=== PATIENT | male | born 1975 | race American Indian/Alaskan Native ===

== ENCOUNTER 2019-12-20 11:30 | Inpatient (IN) | payer OTHER ==
[2019-12-20 12:05] VITALS: BMI 20.7
--- NOTE | 2019-12-20 14:16 | HP ---
COWS - Scale Resting Pulse: 0= [place] 80 or Below Sweatin= Chills/Flushing Restless Observation: 0= Sits Still Pupil Size: 1= Pupils >than Normal Bone or Joint Aches: 0= None Runny Nose/ Eye Tearin= Runny Nose/Eyes GI Upset > 30mins: 0= None Tremor Observation: 1= Tremor [place], Not Seen Yawning Observation: 2= >3x During Session Anxiety or Irritability: 2=Irritable/Anxious Goose Flesh Skin: 0=Smooth Skin COWS Score: 9 CIWA Score Nausea/Vomitin-No Nausea/No Vomiting Muscle Tremors: 1-None Visible, but [place] Anxiety: 4-Mod. Anxious/Guarded Agitation: 1-Slight > Activity Paroxysmal Sweats: 3 Orientation: 0-Oriented Tacttile Disturbances: 0-None Auditory Disturbances: 0-None Visual Disturbances: 0-None Headache: 1-Very Mild CIWA-Ar Total Score: 10 - Admission Criteria OASAS Guidelines: Admission for Medically Managed Detox: Requires at least one of the followin. CIWA greater than 12 2. Seizures within the past 24 hours 3. Delirium tremens within the past 24 hours 4. Hallucinations within the past 24 hours 5. Acute intervention needed for co occurring medical disorder 6. Acute intervention needed for co occurring psychiatric disorder 7. Severe withdrawal that cannot be handled at a lower level of care (continued vomiting, continued diarrhea, abnormal vital signs) requiring intravenous medication and/or fluids 8. Admitting History and Physical - Admission History of Present Illness: 44 yo M PMH of polymyositis, asthma, HTN, polysubstance abuse Pt presents in [facility] today for detox. pt states he uses a lot of drugs. very lethargic on exam and falls asleep mid questioning very frequently Heroin: uses 2.5 bundles/ day. first started when he was 10 yo. last night used 2.5 bundles Alcohol: last drink yesterday. 4 pints. 11 yo Cocaine: last use 2 days ago. 0.5 g / day Marijuana smokes 1 ppd Lives in apartment. has family support. Informed by security that HCTZ and oxycodone 30 mg was found in patient's socks. Pt denies having these in his socks and becomes very irritable. will send to [facility] ED for further eval of RUQ, RLQ pain. signed out to Dr. Daniela Diaz - Smoking History Smoking history: Current every day smoker Have you smoked in the past 12 months: Yes Aproximately how many cigarettes per day: 8 - Alcohol/Substance Use Hx Alcohol Use: No Admission ROS [facility] Allergies/Adverse Reactions: Allergies Allergy/AdvReac Type Severity Reaction Status Date / Time Fish Containing Products Allergy Severe Swelling Verified 12/20/19 11:58 fish derived Allergy Severe Swelling Verified 12/20/19 11:58 haloperidol [From Haldol] Allergy Severe Difficulty Verified 12/20/19 11:58 Breathing haloperidol lactate Allergy Severe Difficulty Verified 12/20/19 11:58 [From Haldol] Breathing Iodinated Contrast Media Allergy Severe Difficulty Verified 12/20/19 11:58 Breathing iodine Allergy Severe Difficulty Verified 12/20/19 11:58 Breathing tomato [Tomato] Allergy Severe Swelling Verified 12/20/19 11:58 lactose AdvReac Severe Nausea Verified 12/20/19 11:58 - Ebola screening Have you traveled outside of the country in the last 21 days: No Have you had contact with anyone from an Ebola affected area: No Do you have a fever: No Patient History - Patient Medical History Hx Anemia: Yes Hx Asthma: Yes (ALBUTEROL INHALER) Hx Chronic Obstructive Pulmonary Disease (COPD): No Hx Cancer: No Hx Cardiac Disorders: No Hx Congestive Heart Failure: No Hx Hypertension: Yes Hx Hypercholesterolemia: No Hx Pacemaker: No HX Cerebrovascular Accident: No Hx Seizures: No Hx Dementia: No Hx Diabetes: No Hx Gastrointestinal Disorders: No Hx Liver Disease: No Hx Genitourinary Disorders: No Hx Sexually Transmitted Disorders: No Hx Renal Disease (ESRD): No Hx Thyroid Disease: Yes (grave's disease hyperthyroidism) Hx Human Immunodeficiency Virus (HIV): No (NEGATIVE HX) Hx Hepatitis C: No Hx Depression: Yes (ON MEDS) Hx Suicide Attempt: No (denies) Hx Bipolar Disorder: Yes Hx Schizophrenia: No - Patient Surgical History Past Surgical History: Yes Hx Neurologic Surgery: No Hx Cataract Extraction: No Hx Cardiac Surgery: No Hx Lung Surgery: No Hx Breast Surgery: No Hx Breast Biopsy: No Hx Abdominal Surgery: No Hx Appendectomy: No Hx Cholecystectomy: No Hx Genitourinary Surgery: No Hx Section: No Hx Orthopedic Surgery: Yes (L.forearm and R ankle surgery 1989 s/p w) Anesthesia Reaction: No - PPD History Date: 07/10/16 Results: to be read 01/10 - Smoking Cessation Smoking history: Current every day smoker Have you smoked in the past 12 months: Yes Aproximately how many cigarettes per day: 8 Cigars Per Day: 0 Hx Chewing Tobacco Use: No Initiated information on smoking cessation: Yes 'Breaking Loose' booklet given: 12/20/19 - Substances abused Alcohol Substance route: Oral Frequency: Daily Amount used: vodka- 5pints Age of first use: 11 Date of last use: 12/20/19 Heroin Substance route: Injection Frequency: Daily Amount used: 13bags Age of first use: 11 Date of last use: 12/19/19 Admission Physical Exam BHS - Vital Signs Vital Signs: Vital Signs - 24 hr 12/20/19 11:57 Temperature 97.1 F L Pulse Rate 73 Respiratory 18 Rate Blood Pressure 101/64 - Physical General Appearance: Yes: Thin, Tremorous, Irritable, Sweating, Anxious HEENTM: Yes: EOMI, Hearing grossly Normal, Normocephalic, Normal Voice, LINNETTE Respiratory: Yes: Lungs Clear, Normal Breath Sounds, No Respiratory Distress, No Accessory Muscle Use. No: Wheezing Cardiology: Yes: Within Normal Limits, Regular Rhythm, Regular Rate, S1, S2. No : JVD, Murmur Abdominal: Yes: Normal Bowel Sounds, Soft, Guarding (RUQ and RLQ) Extremities: Yes: Normal Capillary Refill, Normal Inspection. No: Calf Tenderness Neurological: Yes: respiratory therapy manager II-XII NML intact, Fully Oriented Integumentary: Yes: Normal Color, Dry, Warm - Diagnostic (1) Abdominal pain Status: Acute (2) Polymyositis Status: Chronic (3) Heroin abuse Status: Acute (4) Alcohol dependence Status: Active (5) Cocaine dependence Status: Active (6) Essential hypertension Status: Chronic Breathalyzer - Breathalyzer Breathalyzer: 0 Urine Drug Screen - Test Device Lot number: [id number] Expiration date: 06/26/21 - Control Is test valid?: Yes - Results Drug screen NEGATIVE: No Urine drug screen results: SEDA-Cocaine, FEN-Fentanyl, MOP-Opiates Inpatient Rehab Admission - Rehab Decision to Admit Inpatient rehab admission?: No
--- NOTE | 2019-12-20 21:54 | PN ---
[facility] Progress Note Note: CLIENT RETURNS FROM [facility] AFTER BEING TRANSFERRED THERE FOR ABD PAIN. CLIENT WAS SENT BACK W/O ANY WORK UP CLIENT DENIED SUCH COMPLAINTS AND WAS NON COMPLAINT WITH ER STAFF. CLIENT PRESENTS A/O X3 ACUTE DISTRESS 2/2 WITHDRAWAL SX'S. LEFT AC NOTED WITH 20 G HL- NURSING METAL SHAPING MACHINE OPERATOR BERNARDINO INFORMED- HL REMOVED W/O INCIDENT. ABD- SOFT NT, HYPERACTIVE BS X4 ADMIT CLIENT DETOX METHADONE PROTOCOL
[2019-12-20] MEDS ORDERED: BISMUTH SUBSALICYLATE 524 MG/30 ML UD PO PRN (21:57)
[2019-12-20] MEDS ORDERED: MENTHOL/PHENOL 1 EACH UD MM PRN (21:57)
[2019-12-20] MEDS ORDERED: ONDANSETRON *ODT* 4 MG TABLET SL PRN (21:57)
[2019-12-20] MEDS ORDERED: hydrOXYzine PAMOATE 25 MG CAPSULE (FP) PO PRN (21:57)
[2019-12-20] MEDS ORDERED: cloNIDine HCL 0.1 MG TABLET PO PRN (21:57)
[2019-12-20] MEDS ORDERED: NALOXONE HCL 0.4 MG/ML VIAL IM PRN (21:57)
[2019-12-20] MEDS ORDERED: P-EPHED 60MG/TRIPROLIDI 2.5MG TABLET PO PRN (21:57)
[2019-12-20] MEDS ORDERED: METHADONE HCL 10 MG TABLET (FOR DETOX USE ONLY) PO ONE ×2 (21:57→23:24)
[2019-12-20] MEDS ORDERED: ACETAMINOPHEN 325 MG TABLET (FP) PO PRN ×2 (21:57)
[2019-12-20] MEDS ORDERED: guaiFENesin 200 MG/10 ML 10 ML UNIT-DOSE CUPS PO PRN (21:57)
[2019-12-20] MEDS ORDERED: DICYCLOMINE HCL 10 MG CAPSULE PO PRN (21:57)
[2019-12-20] MEDS ORDERED: MAG HYDROX/AL HYDROX/SIMETH 30 ML UNIT-DOSE CUP PO PRN (21:57)
[2019-12-20] MEDS ORDERED: MAGNESIUM HYDROX 2400MG/30ML ORAL SUSPENSION 30 ML CUP PO PRN (21:57)
[2019-12-20] MEDS ORDERED: NICOTINE POLACRILEX 2 MG GUM BUC PRN (21:57)
[2019-12-20] MEDS ORDERED: MAGNESIUM CITRATE 300 ML BOTTLE PO PRN (21:57)
[2019-12-20] MEDS ORDERED: IBUPROFEN 400 MG TABLET (FP) PO PRN (21:57)
[2019-12-20] MEDS ORDERED: MELATONIN 5 MG TABLETS PO PRN (21:57)
[2019-12-20] MEDS: THIAMINE HCL 100 MG TABLET (FP) PO SCH (23:14)
[2019-12-21] MEDS ORDERED: METHADONE HCL 5 MG TABLET (FOR DETOX USE ONLY) ONE (09:44)
[2019-12-21] MEDS ORDERED: METHADONE HCL 10 MG TABLET (FOR DETOX USE ONLY) ONE (09:44)
[2019-12-21] MEDS ORDERED: METHADONE (DETOX) 20 MG, METHADONE (DETOX) 5 MG PO ONE (10:00)
[2019-12-21] MEDS: PRENATAL VITAMINS W/ FOLIC ACID TABLET (FP) PO SCH (11:30)
[2019-12-21] MEDS: NICOTINE 14 MG/24 HOURS TOPICAL PATCH TD SCH (12:17)
--- NOTE | 2019-12-21 15:05 | CONSULT ---
[facility] Psychiatric Consult - Data Date of interview: 12/21/19 Admission source: [facility] Identifying data: It Sales Executive attempted to see patient two times for psychiatric consultation. Patient refused to be seen. Stated to public relations writer, "I'm tired. Maybe tomorrow." Psychiatric consultation refused.
--- NOTE | 2019-12-21 15:21 | PN ---
[facility] CIWA - CIWA Score Nausea/Vomitin-No Nausea/No Vomiting Muscle Tremors: None Anxiety: 4-Mod. Anxious/Guarded Agitation: 1-Slight > Activity Paroxysmal Sweats: No Perspiration Orientation: 0-Oriented Tacttile Disturbances: 2-Mild Itch/Numbness/Burn Auditory Disturbances: 0-None Visual Disturbances: 2-Mild Sensitivity Headache: 0-None Present CIWA-Ar Total Score: 9 [facility] Progress Note (SOAP) Subjective: Fatigue, Poor Appetite, Anxious. Objective: PATIENT A & O X 3, OBSERVED AMBULATING ON DETOX UNIT UNASSISTED. IN NO ACUTE DISTRESS. 12/21/19 15:19 Vital Signs Temperature 98.1 F 12/21/19 10:00 Pulse Rate 92 H 12/21/19 10:00 Respiratory Rate 18 12/21/19 10:00 Blood Pressure 119/73 12/21/19 10:00 O2 Sat by Pulse Oximetry (%) Laboratory Tests 12/21/19 08:00 HIV 1&2 Antibody Screen Negative HIV P24 Antigen Negative RESULTS OF ADMISSION LABS NOTED. ADMISSION RPR RESULT PENDING. 12/21/19 15:20 Assessment: 12/21/19 15:21 WITHDRAWAL SYMPTOMS. Plan: CONTINUE DETOX.
[2019-12-21] MEDS: THIAMINE HCL 100 MG TABLET (FP) PO SCH (22:46)
[2019-12-21] MEDS ORDERED: METHADONE HCL 5 MG TABLET (FOR DETOX USE ONLY) PO ONE (23:45)
--- NOTE | 2019-12-21 23:47 | PN ---
S Progress Note Note: ASKED TO SEE PATIENT FOR UNRELIEVED WITH DRAWAL SX'S. CLIENT DEMANDING ADDITIONAL METHADONE FOR C/O IRRITABILITY SWEATS, CHILLS, RESTLESSNESS AND BODY ACHES. C/O METH IS NOT HOLDING HIM AND WANTS TO SIGN OUT AMA. CLIENT APPEAR IRRITABLE BUT STABLE. NO IMMEDIATE DISTRESS NOTED. VSS. CLIENT THEN BEGAN TO CRY STATING THAT HE IS ON A METHADONE PROGRAM [facility]. LAST THERE 1.5 WEEKS AGO. STATES STOPPED GOING HE IS ON AN ADMINISTRATIVE DETOX FROM 160MG. LAST DOSE W/ 130 MG. D/W CLIENT PROVIDER UNABLE TO VERIFY INFO AT THIS TIME. INFORMATION WILL BE ENDORSED TO DAY PROVIDER IN HOPE THEY CAN VERIFY THE INFORMATION. MOST LIKELY NOT SINCE IT IS A MONDAY BUT WILL ATTEMPT. CLIENT AGREES TO PLAN BUT CONTINUES TO REQUEST THAT HE NEEDS ADDITIONAL METHAONE TO GET HIM THRU THE NIGHT. P- ROBAXIN ORDERED METHADONE 5 MG PO X 1 DOSE CONT TO MONITOR CLOSELY
[2019-12-21] MEDS: METHOCARBAMOL 500 MG TABLET PO PRN (23:55)
[2019-12-22 09:56] VITALS: BP 142/72; PULSE 73; TEMP 100
[2019-12-22] MEDS ORDERED: METHADONE HCL 10 MG TABLET (FOR DETOX USE ONLY) PO ONE (10:00)
[2019-12-22] MEDS: PRENATAL VITAMINS W/ FOLIC ACID TABLET (FP) PO SCH (10:15)
[2019-12-22] MEDS: METHOCARBAMOL 500 MG TABLET PO PRN (10:17)
[2019-12-22] MEDS: NICOTINE 14 MG/24 HOURS TOPICAL PATCH TD SCH (10:17)
--- NOTE | 2019-12-22 13:42 | DS ---
[facility] Detox Discharge Summary Admission Date: 12/20/19 Discharge Date: 12/22/19 - History Present History: Alcohol Dependence, Cocaine Dependence, Opioid Dependence Additional Comments: Patient demanded to leave AMA despite encouragement to complete detox. Patient has been very loud and agitated intermittently and verbally abusive to chart writer both in the hallway and in his room as he was demanding to have more methadone. Patient stated he was in a methadone program outside but last took methadone 130mg 1.5 week ago and that he was using methadone on the street. As per patient , the night doctor told him that he was discharged today. Patient made aware that he was not on the discharge list and he later stated that he will leave whenever he is discharged. After taking his scheduled morning dose of methadone , he later decided to leave AMA. Patient informed to call 911 KRISHAN if sick or withdrawal sxs and to see his PCP within 3 days. Patient left in stable condition. Pertinent Past History: Polymyositis Asthma HTN Hyperthyroidism Nicotine dependence - Physical Exam Results Vital Signs: Vital Signs Temperature 100 F H 12/22/19 09:55 Pulse Rate 73 12/22/19 09:55 Respiratory Rate 18 12/22/19 09:55 Blood Pressure 142/72 12/22/19 09:55 O2 Sat by Pulse Oximetry (%) Pertinent Admission Physical Exam Findings: Withdrawal sxs Laboratory Tests 12/21/19 12/21/19 08:00 08:00 RPR Titer Nonreactive HIV 1&2 Antibody Screen Negative HIV P24 Antigen Negative Labs reviewed - Medication Discharge Medications: Ambulatory Orders NK [No Known Home Medication] 12/20/19 - Diagnosis (1) Alcohol dependence with withdrawal, uncomplicated Status: Acute (2) Cocaine dependence Status: Active (3) Essential hypertension Status: Chronic (4) Nicotine dependence Status: Chronic (5) Opioid dependence with withdrawal Status: Acute (6) Polymyositis Status: Chronic (7) Hyperthyroidism Status: Chronic - AMA Did Patient Leave Against Medical Advice: Yes (Instructed to call 911 KRISHAN if sick or withdrawal sxs)
[2019-12-23] MEDS ORDERED: METHADONE (DETOX) 10 MG, METHADONE (DETOX) 5 MG PO ONE (10:00)
[2019-12-24] MEDS ORDERED: METHADONE HCL 10 MG TABLET (FOR DETOX USE ONLY) PO ONE (10:00)
[2019-12-25] MEDS ORDERED: METHADONE HCL 5 MG TABLET (FOR DETOX USE ONLY) PO ONE (06:00)
== END 2019-12-22 11:40 | disposition left against medical advice (07) | DRG 770 ==
LOC: YASAS 11:30 → Y6N 22:23
PROVIDERS: ADMIT Allergy & Immunology; ATTEND Allergy & Immunology
PROC: HZ2ZZZZ Detoxification Services for Substance Abuse Treatment (ICD-10-PCS; principal; 2019-12-20)
DX: F11.23 Opioid dependence with withdrawal (principal); F10.230 Alcohol dependence with withdrawal, uncomplicated; F14.20 Cocaine dependence, uncomplicated; F17.210 Nicotine dependence, cigarettes, uncomplicated; I10 Essential (primary) hypertension; E05.90 Thyrotoxicosis, unspecified without thyrotoxic crisis or storm; E05.00 Thyrotoxicosis with diffuse goiter without thyrotoxic crisis or storm; M33.20 Polymyositis, organ involvement unspecified; R10.31 Right lower quadrant pain; J45.909 Unspecified asthma, uncomplicated; Z91.19 Patient's noncompliance with other medical treatment and regimen; Z91.011 Allergy to milk products; Z91.013 Allergy to seafood; Z91.041 Radiographic dye allergy status; Z88.8 Allergy status to other drugs, medicaments and biological substances
CPT/HCPCS: 36415; 86593; 87389; J0735; Q0162

== ENCOUNTER 2019-12-20 16:18 | Emergency (ER) | payer OTHER ==
--- NOTE | 2019-12-20 16:38 | PDOC ---
History of Present Illness - General Chief Complaint: Pain, Acute Stated Complaint: ABD PAIN Time Seen by Provider: 12/20/19 16:26 - History of Present Illness Initial Comments: Mr. Al is a 44 y/o male with PMH significant for polymyositis, polysubstance abuse, sent in from [facility] today for abdominal pain and lethargy. Per [facility] note, he has taken multiple drugs including alcohol, cocaine, and opioids. At bedside, patient is denying abdominal pain and refuses to answer questions. States that he would like medications for withdrawal. Past History - Past Medical History Allergies/Adverse Reactions: Allergies Allergy/AdvReac Type Severity Reaction Status Date / Time Fish Containing Products Allergy Severe Swelling Verified 12/20/19 11:58 fish derived Allergy Severe Swelling Verified 12/20/19 11:58 haloperidol [From Haldol] Allergy Severe Difficulty Verified 12/20/19 11:58 Breathing haloperidol lactate Allergy Severe Difficulty Verified 12/20/19 11:58 [From Haldol] Breathing Iodinated Contrast Media Allergy Severe Difficulty Verified 12/20/19 11:58 Breathing iodine Allergy Severe Difficulty Verified 12/20/19 11:58 Breathing tomato [Tomato] Allergy Severe Swelling Verified 12/20/19 11:58 lactose AdvReac Severe Nausea Verified 12/20/19 11:58 Home Medications: Ambulatory Orders NK [No Known Home Medication] 12/20/19 Anemia: Yes Asthma: Yes (ALBUTEROL INHALER) Cancer: No Cardiac Disorders: No CVA: No COPD: No CHF: No Dementia: No Diabetes: No GI Disorders: No Disorders: No HTN: Yes Hypercholesterolemia: No Kidney Stones: No Liver Disease: No Seizures: No Thyroid Disease: Yes (grave's disease hyperthyroidism) - Surgical History Abdominal Surgery: No Appendectomy: No Cardiac Surgery: No Cholecystectomy: No Lung Surgery: No Neurologic Surgery: No Orthopedic Surgery: Yes (L.forearm and R ankle surgery 1989 s/p [facility]) - Reproductive History Testicular Surgery: No - Psycho Social/Smoking Cessation Hx Smoking History: Current every day smoker Have you smoked in the past 12 months: Yes Number of Cigarettes Smoked Daily: 8 Cigars Per Day: 0 'Breaking Loose' booklet given: 07/08/16 Hx Alcohol Use: No Drug/Substance Use Hx: Yes Substance Use Type: Heroin Hx Substance Use Treatment: Yes Abd/GI Specific PMHX - Complaint Specific PMHX Hepatitis: No Pancreatitis: No Review of Systems - Review of Systems Able to Perform ROS?: No (pt refuses to answer ) *Physical Exam - Physical Exam Abd: soft, non-tender, non-distended. Patient refuses to cooperate or participate with the remainder of the physical exam. ED Treatment Course - LABORATORY CBC & Chemistry Diagram: 12/20/19 17:03 12/20/19 17:03 - RADIOLOGY Radiology Studies Ordered: Category Date Time Status CHEST X-RAY PORTABLE* [RAD] Stat Radiology 12/20/19 16:36 Ordered Medical Decision Making - Medical Decision Making 12/20/19 16:37 44M hx of polymyositis, polysubstance abuse, sent in from [facility] for abdominal pain, lethargy. -cbc, cmp -ekg, trop, cxr -lipase, lactic acid -tsh 12/20/19 19:58 Pt reassessed. Continues to refuse to cooperate for EKG, urine test. Pt interviewed with attending and continues to refuse to cooperate. Belligerent and aggressive with several staff members, including day nurse and medical technologist prn. Labs reviewed. Laboratory Last Values WBC 4.8 K/mm3 (4.0-10.0) 12/20/19 17:03 RBC 4.49 M/mm3 (4.00-5.60) 12/20/19 17:03 Hgb 12.5 GM/dL (11.7-16.9) 12/20/19 17:03 Hct 38.1 % (35.4-49) 12/20/19 17:03 MCV 85.0 fl (80-96) 12/20/19 17:03 MCH 27.8 pg (25.7-33.7) 12/20/19 17:03 MCHC 32.7 g/dl (32.0-35.9) 12/20/19 17:03 RDW 14.2 % (11.9-15.9) 12/20/19 17:03 Plt Count 286 K/MM3 (134-434) 12/20/19 17:03 MPV 9.1 fl (7.5-11.1) 12/20/19 17:03 Absolute Neuts (auto) 2.2 K/mm3 (1.5-8.0) 12/20/19 17:03 Neutrophils % 46.9 % (42.8-82.8) 12/20/19 17:03 Lymphocytes % 32.7 % (8-40) 12/20/19 17:03 Monocytes % 14.0 % (3.8-10.2) H 12/20/19 17:03 Eosinophils % 5.3 % (0-4.5) H 12/20/19 17:03 Basophils % 1.1 % (0-2.0) 12/20/19 17:03 Nucleated RBC % 0 % (0-0) 12/20/19 17:03 Sodium 139 mmol/L (136-145) 12/20/19 17:03 Potassium 3.9 mmol/L (3.5-5.1) 12/20/19 17:03 Chloride 108 mmol/L (98-107) H 12/20/19 17:03 Carbon Dioxide 25 mmol/L (21-32) 12/20/19 17:03 Anion Gap 6 MMOL/L (8-16) L 12/20/19 17:03 BUN 14.6 mg/dL (7-18) 12/20/19 17:03 Creatinine 0.9 mg/dL (0.55-1.3) 12/20/19 17:03 Est GFR (CKD-EPI)AfAm 118.30 12/20/19 17:03 Est GFR (CKD-EPI)NonAf 102.07 12/20/19 17:03 Random Glucose 109 mg/dL (74-106) H 12/20/19 17:03 Calcium 9.1 mg/dL (8.5-10.1) 12/20/19 17:03 Total Bilirubin 0.2 mg/dL (0.2-1) 12/20/19 17:03 AST 39 U/L (15-37) H 12/20/19 17:03 ALT 44 U/L (13-61) 12/20/19 17:03 Alkaline Phosphatase 133 U/L (45-117) H 12/20/19 17:03 Creatine Kinase 74 U/L (26-308) 12/20/19 17:03 Troponin I < 0.02 ng/ml (0.00-0.05) 12/20/19 17:03 Total Protein 7.2 g/dl (6.4-8.2) 12/20/19 17:03 Albumin 3.5 g/dl (3.4-5.0) 12/20/19 17:03 Lipase 288 U/L (73-393) 12/20/19 17:03 TSH 0.12 uIU/ml (0.358-3.74) L 12/20/19 17:03 The patient has requested to leave the ED against medical advice. The patient reason(s) for leaving include, but are not limited to, the following: "I did not ask to come to the hospital and I do not want to be here." I believe this patient is of sound mind and competent to refuse medical care. The patient is responding and asking questions appropriately. The patient is oriented to person , place and time. The patient is not psychotic, delusional, suicidal, homicidal or hallucinating. The patient demonstrates a normal mental capacity to make decisions regarding their healthcare. The patient is clinically sober. The patient has been advised of the risks, in layman terms, of leaving AMA which include, but are not limited to , coma, permanent disability, loss of current lifestyle, delay in diagnosis. Alternatives have been offered - the patient remains steadfast in their wish to leave. The patient has been advised that should they change their mind they are welcome to return to this hospital, or any other, at any time. The patient understands that in no way does an AMA discharge mean that I do not want them to have the best medical care available. To this end, I have provided appropriate prescriptions, referrals, and discharge instructions. The patient did not sign AMA paperwork. The above discussion was witnessed by another member of staff. Discharge - Discharge Information Problems reviewed: Yes Clinical Impression/Diagnosis: Abdominal pain Condition: Stable Disposition: AGAINST MEDICAL ADVICE - Admission No - Follow up/Referral - Patient Discharge Instructions Patient Printed Discharge Instructions: DI for Prescription Opioid Use Additional Instructions: Please continue following up at [facility] for detox. - Post Discharge Activity
[2019-12-20 17:25] VITALS: BP 94/60; PULSE 60; TEMP 97.9; BMI 21.2
[2019-12-20 18:04] LABS: BASO % 1.1 % (0-2.0); EOS % 5.3 % (0-4.5); HEMATOCRIT 38.1 % (35.4-49); HEMOGLOBIN 12.5 GM/dL (11.7-16.9); LYMPH % 32.7 % (8-40); MCH 27.8 pg (25.7-33.7); MCHC 32.7 g/dl (32.0-35.9); MEAN PLT VOLUME 9.1 fl (7.5-11.1); NEUT % 46.9 % (42.8-82.8); PLATELET COUNT 286 K/MM3 (134-434); RBC 4.49 M/mm3 (4.00-5.60); RDW 14.2 % (11.9-15.9); WHITE BLOOD COUNT 4.8 K/mm3 (4.0-10.0)
[2019-12-20 18:37] LABS: ALBUMIN 3.5 g/dl (3.4-5.0); BILIRUBIN,TOTAL 0.2 mg/dL (0.2-1); BLOOD UREA NITROGEN 14.6 mg/dL (7-18); CALCIUM 9.1 mg/dL (8.5-10.1); CREATININE 0.9 mg/dL (0.55-1.3); POTASSIUM 3.9 mmol/L (3.5-5.1); TOT PROT 7.2 g/dl (6.4-8.2)
--- NOTE | 2019-12-20 18:45 | PDOC ---
Documentation entered by Vianney Barlow SCRIBE, acting as scribe for Diandra Booth MD. Diandra Booth MD: This documentation has been prepared by the Yen cartagena Brenda, SCRIBE, under my direction and personally reviewed by me in its entirety. I confirm that the documentation accurately reflects all work, treatment, procedures, and medical decision making performed by me. Attending Attestation - Resident Resident Name: James Fajardo - ED Attending Attestation I have performed the following: I have examined & evaluated the patient, The case was reviewed & discussed with the resident, I agree w/resident's findings & plan, Exceptions are as noted - HPI HPI: 12/20/19 17:17 Mr. Al is a 44 year old male with h/o HTN, anemia, polymyositis, asthma and polysubstance abuse (per chart review) He was seen at the [facility] intake physician at noon where pt reportedly complained of abominal pain and was sleepy Since being transferred to the ER the patient has been largely uncooperative Pt was initially sleeping during examination and refusing to answer examiner Allergies: Haloperidol Social History: Polysubstance abuse 12/20/19 19:56 - Physicial Exam PE: 12/20/19 17:22 GENERAL: The patient is sleeping on stretcher ENT: Moist mucous membranes. NECK: Normal range of motion, supple, no nuchal rigidity LUNGS: Breath sounds equal, clear to auscultation bilaterally. HEART: Regular rate and rhythm, normal S1 and S2 without murmur, rub or gallop. ABDOMEN: Soft, no tenderness appreciated by resident Pt refused to allow me to examine him EXTREMITIES: Normal range of motion, no edema. NEUROLOGICAL: Sleeping, arousable to voice, moving all extremities with no difficulty SKIN: Visible portions of skin reveal no lacerations or bruising 12/20/19 19:58 - Medical Decision Making 12/20/19 18:45 44 yo M presenting to the ER due to reported abdominal pain Pt uncooperative with history and physical Laboratory Tests 12/20/19 12/20/19 17:03 17:03 WBC 4.8 Hgb 12.5 Hct 38.1 Plt Count 286 BUN 14.6 Creatinine 0.9 12/20/19 19:59 Attempted to re assess this patient He is refusing repeat abdominal examination and at this time is denying abdominal pain to the ER staff The patient states "I don't know why I was sent here" "I don't have abdominal pain" Pt then turned over in stretcher Uncooperative with EKG Pt will be returned to [facility] for assessment for detox if he chooses to do so Pt labs wnl Clinical impression: requesting Detox Return patient to the ER if he develops new symptoms or complaints
[2019-12-20 18:46] LABS: LIPASE 288 U/L (73-393)
--- NOTE | 2019-12-21 10:49 | EKG ---
Test Reason : Blood Pressure : / mmHG Vent. Rate : 061 BPM Atrial Rate : 061 BPM P-R Int : 156 ms QRS Dur : 086 ms QT Int : 406 ms P-R-T Axes : 074 061 048 degrees QTc Int : 408 ms NORMAL SINUS RHYTHM WITH SINUS ARRHYTHMIA NORMAL ECG NO PREVIOUS ECGS AVAILABLE Confirmed by JOSEMANUEL NEWSOME MD ([id number]) on 12/21/2019 10:49:03 AM Referred By: WAYLON Confirmed By:JOSEMANUEL NEWSOME MD
== END 2019-12-20 21:09 | disposition left against medical advice (07) ==
LOC: JER 16:18
DX: R10.9 Unspecified abdominal pain (principal); M33.20 Polymyositis, organ involvement unspecified; I10 Essential (primary) hypertension; D64.9 Anemia, unspecified; F10.10 Alcohol abuse, uncomplicated; F11.10 Opioid abuse, uncomplicated; F14.10 Cocaine abuse, uncomplicated; Z91.013 Allergy to seafood; Z88.8 Allergy status to other drugs, medicaments and biological substances; Z91.018 Allergy to other foods
CPT/HCPCS: 36415; 71045-TC-FY; 80053; 82550; 83690; 84443; 84484; 85025; 93005; 93010; 99283-25

== ENCOUNTER 2022-04-13 14:46 | Inpatient (IN) | payer OTHER ==
[2022-04-13 15:23] VITALS: BMI 20.9
[2022-04-13] MEDS ORDERED: ACETAMINOPHEN 325 MG TABLET (FP) PO PRN ×2 (17:58)
[2022-04-13] MEDS ORDERED: IBUPROFEN 400 MG TABLET (FP) PO PRN (17:58)
[2022-04-13] MEDS ORDERED: MAGNESIUM HYDROX 2400MG/30ML ORAL SUSPENSION 30 ML CUP PO PRN (17:58)
[2022-04-13] MEDS ORDERED: BENZOCAINE/MENTHOL (CHLORASEPTIC ) LOZENGE MM PRN (17:58)
[2022-04-13] MEDS ORDERED: NICOTINE 10 MG CARTRIDGE (INHALER) IH PRN (17:58)
[2022-04-13] MEDS ORDERED: LOPERAMIDE HCL 2 MG CAPSULE PO PRN (17:58)
[2022-04-13] MEDS ORDERED: DICYCLOMINE HCL 10 MG CAPSULE PO PRN (17:58)
[2022-04-13] MEDS ORDERED: MAGNESIUM CITRATE 300 ML BOTTLE PO PRN (17:58)
[2022-04-13] MEDS ORDERED: MAG HYDROX/AL HYDROX/SIMETH 30 ML UNIT-DOSE CUP PO PRN (17:58)
[2022-04-13] MEDS ORDERED: BISMUTH SUBSALICYLATE 524 MG/30 ML PO PRN (17:58)
[2022-04-13] MEDS ORDERED: ONDANSETRON *ODT* 4 MG TABLET SL PRN (17:58)
[2022-04-14] MEDS: hydrOXYzine PAMOATE 25 MG CAPSULE (FP) PO SCH ×8 (00:02→22:21)
[2022-04-14] MEDS: PRENATAL VITAMINS W/ FOLIC ACID TABLET (FP) PO SCH ×2 (00:02→10:39)
[2022-04-14] MEDS: MELATONIN 5 MG TABLETS PO SCH ×2 (00:02→22:21)
[2022-04-14] MEDS: THIAMINE HCL 100 MG TABLET (FP) PO SCH ×2 (00:03→22:21)
[2022-04-14] MEDS ORDERED: methaDONE HCL 40 MG DISPERSABLE TABLET ONE (09:20)
[2022-04-14] MEDS ORDERED: methaDONE HCL 10 MG TABLET ONE (09:20)
[2022-04-14] MEDS ORDERED: diazePAM 5 MG TABLET PO PRN (09:49)
[2022-04-14] MEDS ORDERED: methaDONE HCL 10 MG TABLET PO ONE (10:00)
[2022-04-14] MEDS: METHOCARBAMOL 500 MG TABLET PO PRN ×2 (10:39→18:02)
[2022-04-14] MEDS: diazePAM 5 MG TABLET PO SCH ×3 (10:41→22:20)
[2022-04-14 10:51] LABS: HEMOGLOBIN 11.6 GM/dL (11.7-16.9); MCHC 32.3 g/dl (32.0-35.9); MEAN CELL VOLUME 83.6 fl (80-96); MEAN PLT VOLUME 9.4 fl (7.5-11.1); PLATELET COUNT 237 10^3/uL (134-434); RDW 14.4 % (11.9-15.9); WHITE BLOOD COUNT 4.9 K/mm3 (4.0-10.0)
[2022-04-14 11:01] LABS: CALCIUM 8.8 mg/dL (8.5-10.1)
[2022-04-14 11:02] LABS: BLOOD UREA NITROGEN 13.3 mg/dL (7-18)
[2022-04-14 11:04] LABS: CREATININE 0.8 mg/dL (0.55-1.3)
[2022-04-14 11:06] LABS: BILIRUBIN,TOTAL 0.3 mg/dL (0.2-1); TOT PROT 6.8 g/dl (6.4-8.2)
[2022-04-15] MEDS ORDERED: methaDONE HCL 10 MG TABLET ONE (04:53)
[2022-04-15] MEDS ORDERED: methaDONE HCL 40 MG DISPERSABLE TABLET ONE (04:54)
[2022-04-15] MEDS ORDERED: methaDONE HCL 10 MG TABLET PO SCH (06:00)
[2022-04-15] MEDS: hydrOXYzine PAMOATE 25 MG CAPSULE (FP) PO SCH ×5 (06:50→22:45)
[2022-04-15] MEDS: diazePAM 5 MG TABLET PO SCH ×3 (06:50→22:45)
[2022-04-15] MEDS: PRENATAL VITAMINS W/ FOLIC ACID TABLET (FP) PO SCH (10:37)
[2022-04-15] MEDS: METHOCARBAMOL 500 MG TABLET PO PRN ×2 (10:38→22:45)
[2022-04-15] MEDS: MELATONIN 5 MG TABLETS PO SCH (22:45)
[2022-04-15] MEDS: THIAMINE HCL 100 MG TABLET (FP) PO SCH (22:45)
[2022-04-16 00:06] LABS: SARS-CoV-2 NAA Not Detected (Not Detected)
[2022-04-16] MEDS ORDERED: methaDONE HCL 40 MG DISPERSABLE TABLET ONE (04:23)
[2022-04-16] MEDS ORDERED: methaDONE HCL 10 MG TABLET ONE (04:23)
[2022-04-16] MEDS: diazePAM 5 MG TABLET PO SCH ×2 (05:57→18:37)
[2022-04-16] MEDS: hydrOXYzine PAMOATE 25 MG CAPSULE (FP) PO SCH ×6 (05:58→23:57)
[2022-04-16] MEDS: PRENATAL VITAMINS W/ FOLIC ACID TABLET (FP) PO SCH ×2 (10:54→10:57)
[2022-04-16] MEDS: METHOCARBAMOL 500 MG TABLET PO PRN (18:37)
[2022-04-16] MEDS: MELATONIN 5 MG TABLETS PO SCH (23:57)
[2022-04-16] MEDS: THIAMINE HCL 100 MG TABLET (FP) PO SCH (23:58)
[2022-04-17] MEDS ORDERED: methaDONE HCL 10 MG TABLET ONE (04:43)
[2022-04-17] MEDS ORDERED: methaDONE HCL 40 MG DISPERSABLE TABLET ONE (04:43)
[2022-04-17] MEDS ORDERED: diazePAM 5 MG TABLET PO ONE (06:00)
[2022-04-17] MEDS: hydrOXYzine PAMOATE 25 MG CAPSULE (FP) PO SCH ×5 (06:27→22:39)
[2022-04-17] MEDS: PRENATAL VITAMINS W/ FOLIC ACID TABLET (FP) PO SCH (11:00)
[2022-04-17] MEDS: METHOCARBAMOL 500 MG TABLET PO PRN (17:37)
[2022-04-17] MEDS: THIAMINE HCL 100 MG TABLET (FP) PO SCH (22:38)
[2022-04-17] MEDS: MELATONIN 5 MG TABLETS PO SCH (22:39)
[2022-04-18] MEDS ORDERED: methaDONE HCL 10 MG TABLET ONE (04:55)
[2022-04-18] MEDS ORDERED: methaDONE HCL 40 MG DISPERSABLE TABLET ONE (04:56)
[2022-04-18] MEDS: hydrOXYzine PAMOATE 25 MG CAPSULE (FP) PO SCH (06:00)
[2022-04-18] MEDS: METHOCARBAMOL 500 MG TABLET PO PRN (09:25)
[2022-04-18] MEDS: PRENATAL VITAMINS W/ FOLIC ACID TABLET (FP) PO SCH (09:25)
[2022-04-18 13:10] VITALS: BP 107/73; PULSE 92; TEMP 98.8
== END 2022-04-18 01:05 | disposition other institution (70) | DRG 773 ==
LOC: YASAS 14:46 → Y6N 18:33
PROVIDERS: ADMIT Allergy & Immunology; ATTEND Surgery
PROC: HZ2ZZZZ Detoxification Services for Substance Abuse Treatment (ICD-10-PCS; principal; 2022-04-13)
DX: F10.230 Alcohol dependence with withdrawal, uncomplicated (principal); F11.20 Opioid dependence, uncomplicated; F14.20 Cocaine dependence, uncomplicated; F12.20 Cannabis dependence, uncomplicated; F17.213 Nicotine dependence, cigarettes, with withdrawal; B18.2 Chronic viral hepatitis C; R63.4 Abnormal weight loss; Z68.20 Body mass index [BMI] 20.0-20.9, adult; Z91.041 Radiographic dye allergy status; Z91.013 Allergy to seafood
CPT/HCPCS: 36415; 80053; 83690; 85027; 86780; 93005; 93010; C9803-CS; U0003; U0005

== ENCOUNTER 2022-04-18 13:21 | Inpatient (IN) | payer OTHER ==
[~2022-04-18 13:21] MED LIST: ACETAMINOPHEN 325 MG TABLET (FP) PO PRN; LOPERAMIDE HCL 2 MG CAPSULE PO PRN; MAG HYDROX/AL HYDROX/SIMETH 30 ML UNIT-DOSE CUP PO PRN; MAGNESIUM CITRATE 300 ML BOTTLE PO PRN; MAGNESIUM HYDROX 2400MG/30ML ORAL SUSPENSION 30 ML CUP PO PRN; P-EPHED 60MG/TRIPROLIDI 2.5MG TABLET PO PRN; guaiFENesin 200 MG/10 ML 10 ML UNIT-DOSE CUPS PO PRN; methaDONE HCL 40 MG DISPERSABLE TABLET PO SCH
[2022-04-18] MEDS: hydrOXYzine PAMOATE 25 MG CAPSULE (FP) PO SCH ×6 (13:49→22:01)
[2022-04-18] MEDS: NICOTINE 7 MG/24 HOURS TOPICAL PATCH TD SCH (13:49)
[2022-04-18] MEDS: PRENATAL VITAMINS W/ FOLIC ACID TABLET (FP) PO SCH (13:49)
[2022-04-18] MEDS: MELATONIN 5 MG TABLETS PO SCH ×2 (14:49→22:00)
[2022-04-18] MEDS: THIAMINE HCL 100 MG TABLET (FP) PO SCH ×2 (14:49→22:01)
[2022-04-18] MEDS: NICOTINE 10 MG CARTRIDGE (INHALER) IH PRN (18:18)
[2022-04-19] MEDS ORDERED: methaDONE HCL 10 MG TABLET ONE (05:43)
[2022-04-19] MEDS ORDERED: methaDONE HCL 40 MG DISPERSABLE TABLET ONE (05:43)
[2022-04-19] MEDS: hydrOXYzine PAMOATE 25 MG CAPSULE (FP) PO SCH (06:19)
[2022-04-19] MEDS: NICOTINE 7 MG/24 HOURS TOPICAL PATCH TD SCH (10:15)
[2022-04-19] MEDS: PRENATAL VITAMINS W/ FOLIC ACID TABLET (FP) PO SCH (10:15)
[2022-04-19] MEDS: METHOCARBAMOL 500 MG TABLET PO PRN (12:31)
[2022-04-19] MEDS: NICOTINE 10 MG CARTRIDGE (INHALER) IH PRN ×2 (12:32→21:59)
[2022-04-19] MEDS: THIAMINE HCL 100 MG TABLET (FP) PO SCH (21:58)
[2022-04-19] MEDS: MELATONIN 5 MG TABLETS PO SCH (21:58)
[2022-04-20] MEDS ORDERED: methaDONE HCL 40 MG DISPERSABLE TABLET ONE (03:44)
[2022-04-20] MEDS ORDERED: methaDONE HCL 10 MG TABLET ONE (03:44)
[2022-04-20 07:01] VITALS: TEMP 98.6
[2022-04-20] MEDS: NICOTINE 7 MG/24 HOURS TOPICAL PATCH TD SCH (09:17)
[2022-04-20] MEDS: METHOCARBAMOL 500 MG TABLET PO PRN (09:17)
[2022-04-20] MEDS: PRENATAL VITAMINS W/ FOLIC ACID TABLET (FP) PO SCH (09:17)
[2022-04-20] MEDS: LIDOCAINE 5% TOPICAL PATCH TP SCH (09:18)
[2022-04-20] MEDS: IBUPROFEN 400 MG TABLET (FP) PO PRN (14:38)
[2022-04-20] MEDS: GABAPENTIN 100 MG CAPSULE PO SCH ×2 (14:38→21:12)
[2022-04-20] MEDS: MELATONIN 5 MG TABLETS PO SCH (21:12)
[2022-04-20] MEDS: LIDOCAINE PATCH REMOVAL MC SCH (21:12)
[2022-04-20] MEDS: THIAMINE HCL 100 MG TABLET (FP) PO SCH (21:12)
[2022-04-21] MEDS ORDERED: methaDONE HCL 40 MG DISPERSABLE TABLET ONE (02:53)
[2022-04-21] MEDS ORDERED: methaDONE HCL 10 MG TABLET ONE (02:53)
[2022-04-21] MEDS: GABAPENTIN 100 MG CAPSULE PO SCH ×3 (06:34→21:44)
[2022-04-21] MEDS: LIDOCAINE 5% TOPICAL PATCH TP SCH (09:52)
[2022-04-21] MEDS: NICOTINE 7 MG/24 HOURS TOPICAL PATCH TD SCH (09:52)
[2022-04-21] MEDS: METHOCARBAMOL 500 MG TABLET PO PRN (09:55)
[2022-04-21] MEDS: hydrOXYzine PAMOATE 25 MG CAPSULE (FP) PO PRN (09:55)
[2022-04-21] MEDS: PRENATAL VITAMINS W/ FOLIC ACID TABLET (FP) PO SCH (09:55)
[2022-04-21] MEDS: LIDOCAINE PATCH REMOVAL MC SCH (21:44)
[2022-04-21] MEDS: MELATONIN 5 MG TABLETS PO SCH (21:44)
[2022-04-21] MEDS: THIAMINE HCL 100 MG TABLET (FP) PO SCH (21:44)
[2022-04-22] MEDS ORDERED: methaDONE HCL 10 MG TABLET ONE (03:58)
[2022-04-22] MEDS ORDERED: methaDONE HCL 40 MG DISPERSABLE TABLET ONE (03:58)
[2022-04-22] MEDS: GABAPENTIN 100 MG CAPSULE PO SCH (06:32)
[2022-04-22] MEDS: hydrOXYzine PAMOATE 25 MG CAPSULE (FP) PO PRN ×2 (06:34→10:23)
[2022-04-22] MEDS: PRENATAL VITAMINS W/ FOLIC ACID TABLET (FP) PO SCH (10:23)
[2022-04-22] MEDS: METHOCARBAMOL 500 MG TABLET PO PRN (10:23)
[2022-04-22] MEDS: LIDOCAINE 5% TOPICAL PATCH TP SCH (10:24)
[2022-04-22] MEDS: IBUPROFEN 400 MG TABLET (FP) PO PRN (10:24)
[2022-04-22] MEDS: NICOTINE 7 MG/24 HOURS TOPICAL PATCH TD SCH (10:24)
[2022-04-22 11:48] VITALS: BP 108/75; PULSE 96
[2022-04-22] MEDS ORDERED: SERTRALINE HCL 50 MG TABLET (FP) PO SCH (12:30)
[2022-04-22] MEDS ORDERED: PERPHENAZINE 4 MG TABLET PO SCH (12:30)
[2022-04-22] MEDS ORDERED: SUVOREXANT 10 MG TABLET PO PRN (22:00)
== END 2022-04-22 13:30 | disposition left against medical advice (07) | DRG 770 ==
LOC: YASAS 13:21 → Y3W 13:26
PROVIDERS: ADMIT Allergy & Immunology; ATTEND Psychiatry & Neurology Pain Medicine
PROC: HZ42ZZZ Group Counseling for Substance Abuse Treatment, Cognitive-Behavioral (ICD-10-PCS; principal; 2022-04-18)
DX: F11.20 Opioid dependence, uncomplicated (principal); F10.20 Alcohol dependence, uncomplicated; F14.20 Cocaine dependence, uncomplicated; F13.10 Sedative, hypnotic or anxiolytic abuse, uncomplicated; F12.20 Cannabis dependence, uncomplicated; F32.A Depression, unspecified; B19.20 Unspecified viral hepatitis C without hepatic coma; Z91.041 Radiographic dye allergy status; Z91.013 Allergy to seafood; Z88.8 Allergy status to other drugs, medicaments and biological substances

== ENCOUNTER 2022-06-10 18:23 | Inpatient (IN) | payer OTHER ==
[2022-06-10] MEDS ORDERED: LOPERAMIDE HCL 2 MG CAPSULE PO PRN (23:36)
[2022-06-10] MEDS ORDERED: IBUPROFEN 600 MG TABLET (FP) PO PRN (23:36)
[2022-06-10] MEDS ORDERED: BENZOCAINE/MENTHOL (CHLORASEPTIC ) LOZENGE MM PRN (23:36)
[2022-06-10] MEDS ORDERED: NICOTINE 10 MG CARTRIDGE (INHALER) IH PRN (23:36)
[2022-06-10] MEDS ORDERED: ACETAMINOPHEN 325 MG TABLET (FP) PO PRN ×2 (23:36)
[2022-06-10] MEDS ORDERED: MAG HYDROX/AL HYDROX/SIMETH 30 ML UNIT-DOSE CUP PO PRN (23:36)
[2022-06-10] MEDS ORDERED: MAGNESIUM CITRATE 300 ML BOTTLE PO PRN (23:36)
[2022-06-10] MEDS ORDERED: MAGNESIUM HYDROX 2400MG/30ML ORAL SUSPENSION 30 ML CUP PO PRN (23:36)
[2022-06-10] MEDS ORDERED: ONDANSETRON *ODT* 4 MG TABLET SL PRN (23:36)
[2022-06-10] MEDS ORDERED: DICYCLOMINE HCL 10 MG CAPSULE PO PRN (23:36)
[2022-06-10] MEDS ORDERED: BISMUTH SUBSALICYLATE 524 MG/30 ML PO PRN (23:36)
[2022-06-10] MEDS ORDERED: IBUPROFEN 400 MG TABLET (FP) PO PRN (23:36)
[2022-06-11] MEDS: diazePAM 5 MG TABLET PO SCH ×5 (02:52→23:19)
[2022-06-11] MEDS ORDERED: FAMOTIDINE 40 MG TABLET PO SCH (10:00)
[2022-06-11] MEDS: hydrOXYzine PAMOATE 25 MG CAPSULE (FP) PO PRN ×2 (10:29→18:26)
[2022-06-11] MEDS: PRENATAL VITAMINS W/ FOLIC ACID TABLET (FP) PO SCH (10:29)
[2022-06-11] MEDS: METHOCARBAMOL 500 MG TABLET PO PRN ×2 (10:30→23:18)
[2022-06-11] MEDS ORDERED: methaDONE HCL 10 MG TABLET PO SCH (11:45)
[2022-06-11] MEDS ORDERED: methaDONE HCL 10 MG TABLET ONE (12:34)
[2022-06-11] MEDS ORDERED: methaDONE HCL 40 MG DISPERSABLE TABLET ONE (12:35)
[2022-06-11 12:36] LABS: HEMOGLOBIN 11.9 GM/dL (11.7-16.9); MCH 27.4 pg (25.7-33.7); MCHC 33.1 g/dl (32.0-35.9); MEAN CELL VOLUME 82.8 fl (80-96); MEAN PLT VOLUME 8.2 fl (7.5-11.1); PLATELET COUNT 256 10^3/uL (134-434); RBC 4.35 M/mm3 (4.00-5.60); RDW 14.6 % (11.9-15.9); WHITE BLOOD COUNT 4.6 K/mm3 (4.0-10.0)
[2022-06-11 14:34] LABS: ALBUMIN 3.4 g/dl (3.4-5.0); BLOOD UREA NITROGEN 9.9 mg/dL (7-18); CALCIUM 8.7 mg/dL (8.5-10.1)
[2022-06-11 14:38] LABS: CREATININE 0.8 mg/dL (0.55-1.3)
[2022-06-11 14:39] LABS: BILIRUBIN,TOTAL 0.2 mg/dL (0.2-1); TOT PROT 7.2 g/dl (6.4-8.2)
[2022-06-11] MEDS ORDERED: MELATONIN 5 MG TABLETS PO SCH (22:00)
[2022-06-11] MEDS ORDERED: SUVOREXANT 10 MG TABLET PO PRN (22:00)
[2022-06-11] MEDS: THIAMINE HCL 100 MG TABLET (FP) PO SCH (23:19)
[2022-06-12] MEDS ORDERED: methaDONE HCL 10 MG TABLET ONE (05:01)
[2022-06-12] MEDS ORDERED: methaDONE HCL 40 MG DISPERSABLE TABLET ONE (05:01)
[2022-06-12] MEDS: diazePAM 5 MG TABLET PO SCH ×3 (06:12→22:29)
[2022-06-12] MEDS ORDERED: PATIENT'S OWN MEDICATION (NON-FORMULARY) (Sertraline Hcl [Zoloft] 100 MG Tablet) PO SCH (10:00)
[2022-06-12] MEDS: METHOCARBAMOL 500 MG TABLET PO PRN (10:40)
[2022-06-12] MEDS: hydrOXYzine PAMOATE 25 MG CAPSULE (FP) PO PRN (10:40)
[2022-06-12] MEDS: SERTRALINE HCL 50 MG TABLET (FP) PO SCH (10:40)
[2022-06-12] MEDS: PRENATAL VITAMINS W/ FOLIC ACID TABLET (FP) PO SCH (10:40)
[2022-06-12] MEDS: FAMOTIDINE 20 MG TABLET PO SCH (10:40)
[2022-06-12] MEDS: diazePAM 5 MG TABLET PO PRN (10:41)
[2022-06-12] MEDS: PERPHENAZINE 4 MG TABLET PO SCH (13:19)
[2022-06-12] MEDS: THIAMINE HCL 100 MG TABLET (FP) PO SCH (22:29)
[2022-06-13] MEDS ORDERED: methaDONE HCL 10 MG TABLET ONE (04:26)
[2022-06-13] MEDS ORDERED: methaDONE HCL 40 MG DISPERSABLE TABLET ONE (04:26)
[2022-06-13] MEDS: hydrOXYzine PAMOATE 25 MG CAPSULE (FP) PO PRN ×3 (05:43→22:46)
[2022-06-13] MEDS: diazePAM 5 MG TABLET PO SCH ×2 (05:44→18:10)
[2022-06-13] MEDS: FAMOTIDINE 20 MG TABLET PO SCH (10:27)
[2022-06-13] MEDS: SERTRALINE HCL 50 MG TABLET (FP) PO SCH (10:27)
[2022-06-13] MEDS: diazePAM 5 MG TABLET PO PRN ×2 (10:28→22:48)
[2022-06-13] MEDS: METHOCARBAMOL 500 MG TABLET PO PRN (10:28)
[2022-06-13] MEDS: PERPHENAZINE 4 MG TABLET PO SCH (10:29)
[2022-06-13] MEDS: PRENATAL VITAMINS W/ FOLIC ACID TABLET (FP) PO SCH (10:29)
[2022-06-13] MEDS: THIAMINE HCL 100 MG TABLET (FP) PO SCH (22:43)
[2022-06-14] MEDS ORDERED: methaDONE HCL 10 MG TABLET ONE (04:46)
[2022-06-14] MEDS ORDERED: methaDONE HCL 40 MG DISPERSABLE TABLET ONE (04:46)
[2022-06-14] MEDS ORDERED: diazePAM 5 MG TABLET PO ONE (06:00)
[2022-06-14] MEDS: hydrOXYzine PAMOATE 25 MG CAPSULE (FP) PO PRN (06:44)
[2022-06-14] MEDS: PRENATAL VITAMINS W/ FOLIC ACID TABLET (FP) PO SCH (10:35)
[2022-06-14] MEDS: FAMOTIDINE 20 MG TABLET PO SCH (10:35)
[2022-06-14] MEDS: SERTRALINE HCL 50 MG TABLET (FP) PO SCH (10:36)
[2022-06-14] MEDS: PERPHENAZINE 4 MG TABLET PO SCH (10:36)
[2022-06-14 12:34] LABS: ALBUMIN 3.1 g/dl (3.4-5.0)
[2022-06-14 12:38] LABS: BILIRUBIN,DIRECT 0.1 mg/dL (0.0-0.2)
[2022-06-14 12:39] LABS: TOT PROT 6.8 g/dl (6.4-8.2)
[2022-06-14 12:40] LABS: BILIRUBIN,TOTAL 0.2 mg/dL (0.2-1)
[2022-06-14 13:09] VITALS: BP 125/74; PULSE 61; TEMP 97.7
== END 2022-06-14 17:30 | disposition other institution (70) | DRG 773 ==
LOC: YASAS 18:23 → Y6N 23:42
PROVIDERS: ADMIT Allergy & Immunology; ATTEND Surgery
PROC: HZ2ZZZZ Detoxification Services for Substance Abuse Treatment (ICD-10-PCS; principal; 2022-06-10)
DX: F10.230 Alcohol dependence with withdrawal, uncomplicated (principal); F11.20 Opioid dependence, uncomplicated; F14.20 Cocaine dependence, uncomplicated; F12.20 Cannabis dependence, uncomplicated; F17.210 Nicotine dependence, cigarettes, uncomplicated; I10 Essential (primary) hypertension; E05.00 Thyrotoxicosis with diffuse goiter without thyrotoxic crisis or storm; B18.2 Chronic viral hepatitis C; N40.0 Benign prostatic hyperplasia without lower urinary tract symptoms; R63.4 Abnormal weight loss; Z88.8 Allergy status to other drugs, medicaments and biological substances; Z91.011 Allergy to milk products; Z91.041 Radiographic dye allergy status; Z91.013 Allergy to seafood
CPT/HCPCS: 36415; 80053; 80076; 85027; 86780; C9803-CS; U0003; U0005

== ENCOUNTER 2022-06-14 18:53 | Inpatient (IN) | payer OTHER ==
[2022-06-14] MEDS ORDERED: MAGNESIUM HYDROX 2400MG/30ML ORAL SUSPENSION 30 ML CUP PO PRN (20:28)
[2022-06-14] MEDS ORDERED: guaiFENesin 200 MG/10 ML 10 ML UNIT-DOSE CUPS PO PRN (20:28)
[2022-06-14] MEDS ORDERED: MAG HYDROX/AL HYDROX/SIMETH 30 ML UNIT-DOSE CUP PO PRN (20:28)
[2022-06-14] MEDS ORDERED: BENZOCAINE/MENTHOL (CHLORASEPTIC ) LOZENGE MM PRN (20:28)
[2022-06-14] MEDS ORDERED: MELATONIN 5 MG TABLETS PO PRN (20:28)
[2022-06-14] MEDS ORDERED: LOPERAMIDE HCL 2 MG CAPSULE PO PRN (20:28)
[2022-06-14] MEDS ORDERED: MAGNESIUM CITRATE 300 ML BOTTLE PO PRN (20:28)
[2022-06-14] MEDS ORDERED: P-EPHED 60MG/TRIPROLIDI 2.5MG TABLET PO PRN (20:28)
[2022-06-14] MEDS ORDERED: NICOTINE POLACRILEX 2 MG GUM BUC PRN (20:28)
[2022-06-14] MEDS: THIAMINE HCL 100 MG TABLET (FP) PO SCH (21:15)
[2022-06-14] MEDS: hydrOXYzine PAMOATE 25 MG CAPSULE (FP) PO PRN (21:15)
[2022-06-15] MEDS ORDERED: methaDONE HCL 10 MG TABLET ONE (04:03)
[2022-06-15] MEDS ORDERED: methaDONE HCL 40 MG DISPERSABLE TABLET ONE (04:03)
[2022-06-15] MEDS ORDERED: methaDONE HCL 40 MG DISPERSABLE TABLET PO SCH (06:00)
[2022-06-15] MEDS: FAMOTIDINE 20 MG TABLET PO SCH (09:47)
[2022-06-15] MEDS: PRENATAL VITAMINS W/ FOLIC ACID TABLET (FP) PO SCH (09:47)
[2022-06-15] MEDS: PROPYLTHIOURACIL 50 MG TABLET (UD) PO SCH (12:05)
[2022-06-15] MEDS: THIAMINE HCL 100 MG TABLET (FP) PO SCH (21:13)
[2022-06-15] MEDS: SUVOREXANT 10 MG TABLET PO PRN (21:13)
[2022-06-15] MEDS: hydrOXYzine PAMOATE 25 MG CAPSULE (FP) PO PRN (21:14)
[2022-06-16] MEDS ORDERED: methaDONE HCL 40 MG DISPERSABLE TABLET ONE (02:39)
[2022-06-16] MEDS ORDERED: methaDONE HCL 10 MG TABLET ONE (02:39)
[2022-06-16] MEDS: FAMOTIDINE 20 MG TABLET PO SCH (09:58)
[2022-06-16] MEDS: PRENATAL VITAMINS W/ FOLIC ACID TABLET (FP) PO SCH (09:58)
[2022-06-16] MEDS: PROPYLTHIOURACIL 50 MG TABLET (UD) PO SCH (09:59)
[2022-06-16] MEDS: SERTRALINE HCL 50 MG TABLET (FP) PO SCH (09:59)
[2022-06-16] MEDS: PERPHENAZINE 4 MG TABLET PO SCH (09:59)
[2022-06-16] MEDS: hydrOXYzine PAMOATE 25 MG CAPSULE (FP) PO PRN (21:13)
[2022-06-16] MEDS: THIAMINE HCL 100 MG TABLET (FP) PO SCH (21:13)
[2022-06-16] MEDS: SUVOREXANT 10 MG TABLET PO PRN (21:14)
[2022-06-17] MEDS ORDERED: methaDONE HCL 40 MG DISPERSABLE TABLET ONE (03:13)
[2022-06-17] MEDS ORDERED: methaDONE HCL 10 MG TABLET ONE (03:13)
[2022-06-17] MEDS: PRENATAL VITAMINS W/ FOLIC ACID TABLET (FP) PO SCH (09:55)
[2022-06-17] MEDS: FAMOTIDINE 20 MG TABLET PO SCH (09:56)
[2022-06-17] MEDS: PERPHENAZINE 4 MG TABLET PO SCH (09:56)
[2022-06-17] MEDS: PROPYLTHIOURACIL 50 MG TABLET (UD) PO SCH (09:56)
[2022-06-17] MEDS: SERTRALINE HCL 50 MG TABLET (FP) PO SCH (09:56)
[2022-06-17] MEDS: NICOTINE 10 MG CARTRIDGE (INHALER) IH PRN ×2 (09:58→21:23)
[2022-06-17] MEDS: SUVOREXANT 10 MG TABLET PO PRN (21:23)
[2022-06-17] MEDS: THIAMINE HCL 100 MG TABLET (FP) PO SCH (21:23)
[2022-06-17] MEDS: hydrOXYzine PAMOATE 25 MG CAPSULE (FP) PO PRN (21:23)
[2022-06-18] MEDS ORDERED: methaDONE HCL 10 MG TABLET ONE (03:43)
[2022-06-18] MEDS ORDERED: methaDONE HCL 40 MG DISPERSABLE TABLET ONE (03:43)
[2022-06-18] MEDS: PRENATAL VITAMINS W/ FOLIC ACID TABLET (FP) PO SCH (10:05)
[2022-06-18] MEDS: SERTRALINE HCL 50 MG TABLET (FP) PO SCH (10:05)
[2022-06-18] MEDS: PROPYLTHIOURACIL 50 MG TABLET (UD) PO SCH (10:05)
[2022-06-18] MEDS: FAMOTIDINE 20 MG TABLET PO SCH (10:05)
[2022-06-18] MEDS: PERPHENAZINE 4 MG TABLET PO SCH (10:06)
[2022-06-18] MEDS: hydrOXYzine PAMOATE 25 MG CAPSULE (FP) PO PRN (21:12)
[2022-06-18] MEDS: THIAMINE HCL 100 MG TABLET (FP) PO SCH (21:12)
[2022-06-18] MEDS: SUVOREXANT 10 MG TABLET PO PRN (21:14)
[2022-06-19] MEDS ORDERED: methaDONE HCL 10 MG TABLET ONE (02:48)
[2022-06-19] MEDS ORDERED: methaDONE HCL 40 MG DISPERSABLE TABLET ONE (02:48)
[2022-06-19] MEDS: PERPHENAZINE 4 MG TABLET PO SCH (10:00)
[2022-06-19] MEDS: PROPYLTHIOURACIL 50 MG TABLET (UD) PO SCH (10:00)
[2022-06-19] MEDS: SERTRALINE HCL 50 MG TABLET (FP) PO SCH (10:00)
[2022-06-19] MEDS: PRENATAL VITAMINS W/ FOLIC ACID TABLET (FP) PO SCH (10:00)
[2022-06-19] MEDS: FAMOTIDINE 20 MG TABLET PO SCH (10:00)
[2022-06-19] MEDS: THIAMINE HCL 100 MG TABLET (FP) PO SCH (21:28)
[2022-06-19] MEDS: hydrOXYzine PAMOATE 25 MG CAPSULE (FP) PO PRN (21:28)
[2022-06-19] MEDS: SUVOREXANT 10 MG TABLET PO PRN (21:30)
[2022-06-20] MEDS ORDERED: methaDONE HCL 40 MG DISPERSABLE TABLET ONE (04:56)
[2022-06-20] MEDS ORDERED: methaDONE HCL 10 MG TABLET ONE (04:56)
[2022-06-20] MEDS: PROPYLTHIOURACIL 50 MG TABLET (UD) PO SCH (09:22)
[2022-06-20] MEDS: SERTRALINE HCL 50 MG TABLET (FP) PO SCH (09:22)
[2022-06-20] MEDS: PRENATAL VITAMINS W/ FOLIC ACID TABLET (FP) PO SCH (09:22)
[2022-06-20] MEDS: hydrOXYzine PAMOATE 25 MG CAPSULE (FP) PO PRN (09:22)
[2022-06-20] MEDS: PERPHENAZINE 4 MG TABLET PO SCH (09:22)
[2022-06-20] MEDS: FAMOTIDINE 20 MG TABLET PO SCH (09:22)
[2022-06-20] MEDS: IBUPROFEN 400 MG TABLET (FP) PO PRN (09:23)
[2022-06-20] MEDS: METHOCARBAMOL 500 MG TABLET PO PRN ×2 (15:25→21:50)
[2022-06-20] MEDS: NICOTINE 10 MG CARTRIDGE (INHALER) IH PRN (15:26)
[2022-06-20] MEDS: LIDOCAINE 5% TOPICAL PATCH TP SCH (15:27)
[2022-06-20] MEDS: THIAMINE HCL 100 MG TABLET (FP) PO SCH (21:50)
[2022-06-20] MEDS: LIDOCAINE PATCH REMOVAL MC SCH (21:50)
[2022-06-20] MEDS ORDERED: SUVOREXANT 10 MG TABLET PO PRN (22:00)
[2022-06-21] MEDS ORDERED: methaDONE HCL 10 MG TABLET ONE (06:48)
[2022-06-21] MEDS ORDERED: methaDONE HCL 40 MG DISPERSABLE TABLET ONE (06:48)
[2022-06-21] MEDS: METHOCARBAMOL 500 MG TABLET PO PRN ×2 (07:07→21:26)
[2022-06-21] MEDS: SERTRALINE HCL 50 MG TABLET (FP) PO SCH (09:59)
[2022-06-21] MEDS: PRENATAL VITAMINS W/ FOLIC ACID TABLET (FP) PO SCH (09:59)
[2022-06-21] MEDS: FAMOTIDINE 20 MG TABLET PO SCH (09:59)
[2022-06-21] MEDS: PROPYLTHIOURACIL 50 MG TABLET (UD) PO SCH (10:00)
[2022-06-21] MEDS: PERPHENAZINE 4 MG TABLET PO SCH (10:00)
[2022-06-21] MEDS: LIDOCAINE 5% TOPICAL PATCH TP SCH (10:01)
[2022-06-21] MEDS: LIDOCAINE PATCH REMOVAL MC SCH (21:20)
[2022-06-21] MEDS: SUVOREXANT 10 MG TABLET PO PRN (21:22)
[2022-06-21] MEDS: THIAMINE HCL 100 MG TABLET (FP) PO SCH (21:23)
[2022-06-21] MEDS: ACETAMINOPHEN 325 MG TABLET (FP) PO PRN (21:23)
[2022-06-22] MEDS ORDERED: methaDONE HCL 10 MG TABLET ONE (04:11)
[2022-06-22] MEDS ORDERED: methaDONE HCL 40 MG DISPERSABLE TABLET ONE (04:11)
[2022-06-22] MEDS: LIDOCAINE 5% TOPICAL PATCH TP SCH (09:50)
[2022-06-22] MEDS: PRENATAL VITAMINS W/ FOLIC ACID TABLET (FP) PO SCH (09:50)
[2022-06-22] MEDS: SERTRALINE HCL 50 MG TABLET (FP) PO SCH (09:51)
[2022-06-22] MEDS: FAMOTIDINE 20 MG TABLET PO SCH (09:51)
[2022-06-22] MEDS: PERPHENAZINE 4 MG TABLET PO SCH (09:51)
[2022-06-22] MEDS: PROPYLTHIOURACIL 50 MG TABLET (UD) PO SCH (09:51)
[2022-06-22] MEDS: METHOCARBAMOL 500 MG TABLET PO PRN ×2 (09:53→21:33)
[2022-06-22] MEDS: ACETAMINOPHEN 325 MG TABLET (FP) PO PRN (09:53)
[2022-06-22] MEDS: NICOTINE 10 MG CARTRIDGE (INHALER) IH PRN (21:28)
[2022-06-22] MEDS: THIAMINE HCL 100 MG TABLET (FP) PO SCH (21:29)
[2022-06-22] MEDS: LIDOCAINE PATCH REMOVAL MC SCH (21:29)
[2022-06-22] MEDS: SUVOREXANT 10 MG TABLET PO PRN (21:29)
[2022-06-22] MEDS: IBUPROFEN 400 MG TABLET (FP) PO PRN (21:33)
[2022-06-23] MEDS ORDERED: methaDONE HCL 40 MG DISPERSABLE TABLET ONE (05:43)
[2022-06-23] MEDS ORDERED: methaDONE HCL 10 MG TABLET ONE (05:43)
[2022-06-23] MEDS: PRENATAL VITAMINS W/ FOLIC ACID TABLET (FP) PO SCH (09:46)
[2022-06-23] MEDS: LIDOCAINE 5% TOPICAL PATCH TP SCH (09:46)
[2022-06-23] MEDS: SERTRALINE HCL 50 MG TABLET (FP) PO SCH (09:47)
[2022-06-23] MEDS: FAMOTIDINE 20 MG TABLET PO SCH (09:47)
[2022-06-23] MEDS: PERPHENAZINE 4 MG TABLET PO SCH (09:47)
[2022-06-23] MEDS: PROPYLTHIOURACIL 50 MG TABLET (UD) PO SCH (09:47)
[2022-06-23] MEDS: METHOCARBAMOL 500 MG TABLET PO PRN ×2 (09:48→21:11)
[2022-06-23] MEDS: ACETAMINOPHEN 325 MG TABLET (FP) PO PRN (09:48)
[2022-06-23] MEDS: NICOTINE 10 MG CARTRIDGE (INHALER) IH PRN (14:03)
[2022-06-23] MEDS: THIAMINE HCL 100 MG TABLET (FP) PO SCH (21:11)
[2022-06-23] MEDS: LIDOCAINE PATCH REMOVAL MC SCH (21:12)
[2022-06-23] MEDS: hydrOXYzine PAMOATE 25 MG CAPSULE (FP) PO PRN (21:13)
[2022-06-24] MEDS ORDERED: methaDONE HCL 10 MG TABLET ONE (07:02)
[2022-06-24] MEDS ORDERED: methaDONE HCL 40 MG DISPERSABLE TABLET ONE (07:02)
[2022-06-24] MEDS: PRENATAL VITAMINS W/ FOLIC ACID TABLET (FP) PO SCH (11:02)
[2022-06-24] MEDS: SERTRALINE HCL 50 MG TABLET (FP) PO SCH (11:03)
[2022-06-24] MEDS: PROPYLTHIOURACIL 50 MG TABLET (UD) PO SCH (11:03)
[2022-06-24] MEDS: PERPHENAZINE 4 MG TABLET PO SCH (11:03)
[2022-06-24] MEDS: FAMOTIDINE 20 MG TABLET PO SCH (11:03)
[2022-06-24] MEDS: LIDOCAINE 5% TOPICAL PATCH TP SCH (11:04)
[2022-06-24] MEDS ORDERED: SUVOREXANT 10 MG TABLET PO PRN (22:00)
[2022-06-24] MEDS: THIAMINE HCL 100 MG TABLET (FP) PO SCH (22:34)
[2022-06-24] MEDS: LIDOCAINE PATCH REMOVAL MC SCH (22:34)
[2022-06-25] MEDS ORDERED: methaDONE HCL 10 MG TABLET ONE (05:28)
[2022-06-25] MEDS ORDERED: methaDONE HCL 40 MG DISPERSABLE TABLET ONE (05:29)
[2022-06-25 06:52] VITALS: RESP 18
[2022-06-25] MEDS: LIDOCAINE 5% TOPICAL PATCH TP SCH (10:43)
[2022-06-25] MEDS: PROPYLTHIOURACIL 50 MG TABLET (UD) PO SCH (10:44)
[2022-06-25] MEDS: PERPHENAZINE 4 MG TABLET PO SCH (10:44)
[2022-06-25] MEDS: FAMOTIDINE 20 MG TABLET PO SCH (10:44)
[2022-06-25] MEDS: SERTRALINE HCL 50 MG TABLET (FP) PO SCH (10:44)
[2022-06-25] MEDS: PRENATAL VITAMINS W/ FOLIC ACID TABLET (FP) PO SCH (10:44)
[2022-06-25] MEDS: LIDOCAINE PATCH REMOVAL MC SCH (21:18)
[2022-06-25] MEDS: THIAMINE HCL 100 MG TABLET (FP) PO SCH (21:20)
[2022-06-25] MEDS: METHOCARBAMOL 500 MG TABLET PO PRN (21:22)
[2022-06-25] MEDS ORDERED: MELATONIN 5 MG TABLETS PO SCH (22:00)
[2022-06-26] MEDS ORDERED: methaDONE HCL 10 MG TABLET ONE (02:50)
[2022-06-26] MEDS ORDERED: methaDONE HCL 40 MG DISPERSABLE TABLET ONE (02:51)
[2022-06-26 06:56] VITALS: BP 102/72; PULSE 77; TEMP 97.5
[2022-06-26] MEDS ORDERED: hydrOXYzine PAMOATE 25 MG CAPSULE (FP) PO PRN ×2 (09:15)
[2022-06-26] MEDS: LIDOCAINE 5% TOPICAL PATCH TP SCH (10:15)
[2022-06-26] MEDS: FAMOTIDINE 20 MG TABLET PO SCH (10:15)
[2022-06-26] MEDS: PRENATAL VITAMINS W/ FOLIC ACID TABLET (FP) PO SCH (10:15)
[2022-06-26] MEDS: SERTRALINE HCL 50 MG TABLET (FP) PO SCH (10:16)
[2022-06-26] MEDS: PERPHENAZINE 4 MG TABLET PO SCH (10:16)
[2022-06-26] MEDS: PROPYLTHIOURACIL 50 MG TABLET (UD) PO SCH (10:16)
[2022-06-26] MEDS ORDERED: SUVOREXANT 15 MG TABLET PO PRN (22:00)
[2022-06-26] MEDS: LIDOCAINE PATCH REMOVAL MC SCH (22:25)
[2022-06-26] MEDS: THIAMINE HCL 100 MG TABLET (FP) PO SCH (22:25)
== END 2022-06-26 19:01 | disposition left against medical advice (07) | DRG 770 ==
LOC: Y5N 18:53
PROVIDERS: ADMIT Allergy & Immunology; ATTEND Psychiatry & Neurology Pain Medicine
PROC: HZ42ZZZ Group Counseling for Substance Abuse Treatment, Cognitive-Behavioral (ICD-10-PCS; principal; 2022-06-14)
DX: F10.20 Alcohol dependence, uncomplicated (principal); F11.20 Opioid dependence, uncomplicated; F14.20 Cocaine dependence, uncomplicated; F12.20 Cannabis dependence, uncomplicated; F17.210 Nicotine dependence, cigarettes, uncomplicated; F31.9 Bipolar disorder, unspecified; F19.24 Other psychoactive substance dependence with psychoactive substance-induced mood disorder; I10 Essential (primary) hypertension; B18.2 Chronic viral hepatitis C; N40.0 Benign prostatic hyperplasia without lower urinary tract symptoms; E05.00 Thyrotoxicosis with diffuse goiter without thyrotoxic crisis or storm; K74.60 Unspecified cirrhosis of liver
CPT/HCPCS: 36415; 84443

== ENCOUNTER 2024-10-05 15:04 | Inpatient (IN) | payer OTHER ==
[2024-10-05 15:53] VITALS: BMI 21.5
[2024-10-05] MEDS ORDERED: NICOTINE POLACRILEX 2 MG GUM BUC PRN (16:20)
[2024-10-05] MEDS ORDERED: POLYETHYLENE GLYCOL (HEALTHYLAX) 3350 17 GM PACKET PO PRN (16:20)
[2024-10-05] MEDS ORDERED: BISMUTH SUBSALICYLATE 524 MG/30 ML PO PRN (16:20)
[2024-10-05] MEDS ORDERED: BENZONATATE 200 MG CAPSULE PO PRN (16:20)
[2024-10-05] MEDS ORDERED: IBUPROFEN 400 MG TABLET (FP) PO PRN (16:20)
[2024-10-05] MEDS ORDERED: ONDANSETRON *ODT* 4 MG TABLET SL PRN (16:20)
[2024-10-05] MEDS ORDERED: DICYCLOMINE HCL 10 MG CAPSULE PO PRN (16:20)
[2024-10-05] MEDS ORDERED: ACETAMINOPHEN 325 MG TABLET (FP) PO PRN (16:20)
[2024-10-05] MEDS ORDERED: MAG HYDROX/AL HYDROX/SIMETH 30 ML UNIT-DOSE CUP PO PRN (16:20)
[2024-10-05] MEDS ORDERED: METHOCARBAMOL 500 MG TABLET PO PRN (16:20)
[2024-10-05] MEDS ORDERED: BENZOCAINE/MENTHOL (CHLORASEPTIC ) LOZENGE MM PRN (16:20)
[2024-10-05] MEDS ORDERED: NICOTINE POLACRILEX 2 MG LOZENGE BC PRN (16:20)
[2024-10-05] MEDS ORDERED: MAGNESIUM HYDROX 2400MG/30ML ORAL SUSPENSION 30 ML CUP PO PRN (16:20)
[2024-10-05] MEDS ORDERED: guaiFENesin 600 MG TABLET.ER (FP) PO PRN (16:20)
[2024-10-05] MEDS ORDERED: NALOXONE (NARCAN) HCL 4 MG/0.1 ML SPRAY NS PRN (16:20)
[2024-10-05] MEDS: THIAMINE 100 MG TABLET PO SCH (21:59)
[2024-10-05] MEDS: MELATONIN 5 MG TABLETS PO SCH (21:59)
[2024-10-06 08:00] LABS: POTASSIUM 3.9 mmol/L (3.5-5.1)
[2024-10-06 08:05] LABS: CALCIUM 8.3 mg/dL (8.5-10.1)
[2024-10-06 08:06] LABS: ALBUMIN 2.8 g/dl (3.4-5.0); BLOOD UREA NITROGEN 12.1 mg/dL (7-18); HEMATOCRIT 33.9 % (35.4-49); MCH 27.3 pg (25.7-33.7); MCHC 32.3 g/dl (32.0-35.9); MEAN CELL VOLUME 84.4 fl (80-96); MEAN PLT VOLUME 8.8 fl (7.5-11.1); PLATELET COUNT 221 10^3/uL (134-434); RBC 4.02 M/mm3 (4.00-5.60); RDW 14.1 % (11.9-15.9); WHITE BLOOD COUNT 5.8 K/mm3 (4.0-10.0)
[2024-10-06 08:10] LABS: BILIRUBIN,TOTAL 0.2 mg/dL (0.2-1); TOT PROT 5.9 g/dl (6.4-8.2)
[2024-10-06] MEDS ORDERED: chlordiazePOXIDE HCL 25 MG CAPSULE PO PRN (09:53)
[2024-10-06] MEDS ORDERED: methaDONE HCL 10 MG TABLET PO SCH (10:15)
[2024-10-06] MEDS: PRENATAL VITAMINS W/ FOLIC ACID TABLET (FP) PO SCH (11:08)
[2024-10-06] MEDS: chlordiazePOXIDE HCL 25 MG CAPSULE PO SCH (11:09)
[2024-10-06] MEDS ORDERED: hydrOXYzine PAMOATE 25 MG CAPSULE (FP) PO PRN (16:57)
[2024-10-06] MEDS: PERPHENAZINE 4 MG TABLET PO SCH (22:40)
[2024-10-07] MEDS ORDERED: methaDONE HCL 10 MG TABLET PO ONE (09:48)
[2024-10-07] MEDS ORDERED: ESCITALOPRAM OXALATE 10 MG TABLET ONE (10:59)
[2024-10-07] MEDS: ESCITALOPRAM OXALATE 20 MG TABLET PO SCH (11:00)
[2024-10-08] MEDS: methaDONE HCL 40 MG DISPERSABLE TABLET PO ONE (05:29)
[2024-10-08] MEDS: chlordiazePOXIDE HCL 25 MG CAPSULE PO SCH (05:29)
[2024-10-08] MEDS ORDERED: ESCITALOPRAM OXALATE 10 MG TABLET ONE (10:04)
[2024-10-08] MEDS: IBUPROFEN 600 MG TABLET (FP) PO PRN (16:58)
[2024-10-09] MEDS ORDERED: chlordiazePOXIDE HCL 10 MG CAPSULE PO PRN
[2024-10-09] MEDS: chlordiazePOXIDE HCL 10 MG CAPSULE PO SCH (05:30)
[2024-10-09] MEDS ORDERED: methaDONE HCL 10 MG TABLET PO ONE (06:00)
[2024-10-09] MEDS ORDERED: ESCITALOPRAM OXALATE 10 MG TABLET ONE (10:09)
[2024-10-09] MEDS: PROPYLTHIOURACIL 50 MG TABLET (UD) PO SCH (11:13)
[2024-10-09] MEDS: NALOXONE (NYS OPIOID OVERDOSE PROGRAM) 4 MG/0.1 ML SPRAY NS SCH (12:39)
[2024-10-10] MEDS: chlordiazePOXIDE HCL 10 MG CAPSULE PO SCH (05:25)
[2024-10-10] MEDS ORDERED: methaDONE HCL 10 MG TABLET PO ONE (06:00)
[2024-10-10] MEDS ORDERED: ESCITALOPRAM OXALATE 10 MG TABLET ONE (10:02)
[2024-10-10] MEDS: FAMOTIDINE 20 MG TABLET PO SCH (12:04)
[2024-10-10] MEDS: NALOXONE (NYS OPIOID OVERDOSE PROGRAM) 4 MG/0.1 ML SPRAY NS SCH (12:45)
[2024-10-11] MEDS: LOPERAMIDE HCL 2 MG CAPSULE PO PRN (04:40)
[2024-10-11] MEDS: chlordiazePOXIDE HCL 10 MG CAPSULE PO ONE (05:51)
[2024-10-11] MEDS ORDERED: methaDONE HCL 40 MG DISPERSABLE TABLET PO SCH (06:00)
[2024-10-11 06:49] VITALS: TEMP 98.4
[2024-10-11 08:48] VITALS: BP 106/69; PULSE 55; RESP 16
[2024-10-11] MEDS: NALOXONE (NYS OPIOID OVERDOSE PROGRAM) 4 MG/0.1 ML SPRAY NS PRN (10:19)
== END 2024-10-11 11:30 | disposition home or self-care (01) | DRG 773 ==
LOC: YASAS 15:04 → Y6N 16:45
PROVIDERS: ADMIT Allergy & Immunology; ATTEND Surgery
PROC: HZ2ZZZZ Detoxification Services for Substance Abuse Treatment (ICD-10-PCS; principal; 2024-10-05)
DX: F10.230 Alcohol dependence with withdrawal, uncomplicated (principal); F11.20 Opioid dependence, uncomplicated; F14.20 Cocaine dependence, uncomplicated; F12.20 Cannabis dependence, uncomplicated; F17.210 Nicotine dependence, cigarettes, uncomplicated; F33.1 Major depressive disorder, recurrent, moderate; F41.9 Anxiety disorder, unspecified; E05.90 Thyrotoxicosis, unspecified without thyrotoxic crisis or storm; Z86.73 Personal history of transient ischemic attack (TIA), and cerebral infarction without residual deficits; Z56.0 Unemployment, unspecified; Z59.00 Homelessness unspecified
CPT/HCPCS: 36415; 80053; 80305; 80307; 85027; 86780; 93005; 93010

== ENCOUNTER 2024-12-02 16:59 | Inpatient (IN) | payer OTHER ==
[2024-12-02 18:10] VITALS: BMI 21.7
[2024-12-02] MEDS ORDERED: IBUPROFEN 400 MG TABLET (FP) PO PRN (18:21)
[2024-12-02] MEDS ORDERED: ONDANSETRON *ODT* 4 MG TABLET SL PRN (18:21)
[2024-12-02] MEDS ORDERED: MAG HYDROX/AL HYDROX/SIMETH 30 ML UNIT-DOSE CUP PO PRN (18:21)
[2024-12-02] MEDS ORDERED: NICOTINE POLACRILEX 2 MG GUM BUC PRN (18:21)
[2024-12-02] MEDS ORDERED: LOPERAMIDE HCL 2 MG CAPSULE PO PRN (18:21)
[2024-12-02] MEDS ORDERED: BENZOCAINE/MENTHOL (CHLORASEPTIC ) LOZENGE MM PRN (18:21)
[2024-12-02] MEDS ORDERED: NICOTINE POLACRILEX 2 MG LOZENGE BC PRN (18:21)
[2024-12-02] MEDS ORDERED: P-EPHED 60MG/TRIPROLIDI 2.5MG TABLET PO PRN (18:21)
[2024-12-02] MEDS ORDERED: IBUPROFEN 600 MG TABLET (FP) PO PRN (18:21)
[2024-12-02] MEDS ORDERED: BISMUTH SUBSALICYLATE 524 MG/30 ML PO PRN (18:21)
[2024-12-02] MEDS ORDERED: DICYCLOMINE HCL 10 MG CAPSULE PO PRN (18:21)
[2024-12-02] MEDS ORDERED: MAGNESIUM HYDROX 2400MG/30ML ORAL SUSPENSION 30 ML CUP PO PRN (18:21)
[2024-12-02] MEDS ORDERED: POLYETHYLENE GLYCOL (HEALTHYLAX) 3350 17 GM PACKET PO PRN (18:21)
[2024-12-02] MEDS ORDERED: guaiFENesin 600 MG TABLET.ER (FP) PO PRN (18:21)
[2024-12-02] MEDS ORDERED: BENZONATATE 200 MG CAPSULE PO PRN (18:21)
[2024-12-02] MEDS ORDERED: ALBUTEROL SO4 2.5/IPRATROPIUM 0.5 INH SOL 3 ML VIAL.NEB. NEB ONE (21:19)
[2024-12-02] MEDS: ALBUTEROL SO4 2.5/IPRATROPIUM 0.5 INH SOL 3 ML VIAL.NEB. NEB SCH (21:22)
[2024-12-03] MEDS ORDERED: MELATONIN 5 MG TABLETS ONE (00:27)
[2024-12-03] MEDS: MELATONIN 5 MG TABLETS PO SCH (00:31)
[2024-12-03] MEDS: THIAMINE 100 MG TABLET PO SCH (00:31)
[2024-12-03] MEDS ORDERED: methaDONE HCL 10 MG TABLET (FOR DETOX USE ONLY) PO ONE (08:02)
[2024-12-03] MEDS: clonazePAM 0.5 MG ODT TABLETS SL SCH (09:47)
[2024-12-03] MEDS: methaDONE 80 MG, methaDONE 20 MG PO ONE (09:47)
[2024-12-03] MEDS: PRENATAL VITAMINS W/ FOLIC ACID TABLET (FP) PO SCH (09:48)
[2024-12-03] MEDS: cloNIDine HCL 0.1 MG TABLET PO SCH (09:54)
[2024-12-03] MEDS: ACETAMINOPHEN 325 MG TABLET (FP) PO PRN (10:12)
[2024-12-03 11:29] LABS: CHLORIDE 102 mmol/L (98-107); POTASSIUM 4.1 mmol/L (3.5-5.1); SODIUM 135 mmol/L (136-145)
[2024-12-03 11:35] LABS: HEMATOCRIT 30.9 % (35.4-49); HEMOGLOBIN 10.1 GM/dL (11.7-16.9); MCH 27.2 pg (25.7-33.7); MCHC 32.7 g/dl (32.0-35.9); MEAN CELL VOLUME 83.2 fl (80-96); MEAN PLT VOLUME 9.3 fl (7.5-11.1); PLATELET COUNT 268 10^3/uL (134-434); RBC 3.72 M/mm3 (4.00-5.60); RDW 14.1 % (11.9-15.9); WHITE BLOOD COUNT 17.2 K/mm3 (4.0-10.0)
[2024-12-03 11:38] LABS: ALBUMIN 2.5 g/dl (3.4-5.0); ANION GAP 8 mmol/L (4-13); CALCIUM 8.7 mg/dL (8.5-10.1); CO2 25 mmol/L (21-32); GLUCOSE,RANDOM 77 mg/dL (74-106)
[2024-12-03 11:41] LABS: SGOT/AST 40 U/L (15-37); SGPT/ALT 24 U/L (13-61)
[2024-12-03 11:43] LABS: BILIRUBIN,TOTAL 0.7 mg/dL (0.2-1); TOT PROT 6.6 g/dl (6.4-8.2)
[2024-12-03 11:44] LABS: ALK PHOS 81 U/L (45-117)
[2024-12-03] MEDS ORDERED: ALBUTEROL SO4 2.5/IPRATROPIUM 0.5 INH SOL 3 ML VIAL.NEB. NEB ONE ×2 (13:39→13:45)
[2024-12-03] MEDS: METHOCARBAMOL 500 MG TABLET PO PRN (22:47)
[2024-12-04 00:40] LABS: HIV INTERPRETATION NEGATIVE (NEGATIVE)
[2024-12-04 09:16] VITALS: RESP 16
[2024-12-04] MEDS ORDERED: methaDONE HCL 10 MG TABLET PO SCH (09:30)
[2024-12-04] MEDS: methaDONE HCL 10 MG TABLET PO ONE (10:00)
[2024-12-04] MEDS: methaDONE 80 MG, methaDONE 20 MG PO SCH (10:20)
[2024-12-04 13:13] VITALS: BP 98/65; PULSE 78; TEMP 98.7
[2024-12-04] MEDS: ALBUTEROL SO4 2.5/IPRATROPIUM 0.5 INH SOL 3 ML VIAL.NEB. NEB ONE (14:03)
[2024-12-05] MEDS ORDERED: cloNIDine HCL 0.1 MG TABLET PO PRN
[2024-12-05] MEDS ORDERED: methaDONE HCL 10 MG TABLET PO ONE (10:00)
[2024-12-05] MEDS ORDERED: PROPYLTHIOURACIL 50 MG TABLET (UD) PO SCH (10:00)
[2024-12-06] MEDS ORDERED: methaDONE HCL 10 MG TABLET PO ONE (10:00)
[2024-12-07] MEDS ORDERED: methaDONE HCL 40 MG DISPERSABLE TABLET PO ONE (10:00)
[2024-12-08] MEDS ORDERED: methaDONE HCL 40 MG DISPERSABLE TABLET PO ONE (10:00)
== END 2024-12-04 23:40 | disposition short-term general hospital (02) | DRG 773 ==
LOC: YASAS 16:59 → Y3N 22:41
PROVIDERS: ADMIT Allergy & Immunology; ATTEND Allergy & Immunology
PROC: HZ2ZZZZ Detoxification Services for Substance Abuse Treatment (ICD-10-PCS; principal; 2024-12-02)
DX: F11.23 Opioid dependence with withdrawal (principal); F10.20 Alcohol dependence, uncomplicated; F13.20 Sedative, hypnotic or anxiolytic dependence, uncomplicated; E05.90 Thyrotoxicosis, unspecified without thyrotoxic crisis or storm; I10 Essential (primary) hypertension; J45.909 Unspecified asthma, uncomplicated; R10.13 Epigastric pain; R11.0 Nausea; R05.9 Cough, unspecified; Z87.891 Personal history of nicotine dependence; Z86.73 Personal history of transient ischemic attack (TIA), and cerebral infarction without residual deficits
CPT/HCPCS: 36415; 80053; 80305; 80307; 85027; 87389; 93005; 93010; 94640

== ENCOUNTER 2024-12-04 14:50 | Inpatient (IN) | payer OTHER ==
[2024-12-04 16:07] LABS: EPI CELLS 8 /uL (0-25.1); HYALINE CASTS 4 /uL (0-3.1); PH,URINE 5.5 (5.0-8.0); URINE APPEARANCE CLOUDY; URINE BACTERIA 711 /uL (0-1359); URINE BILIRUBIN 1+ (NEGATIVE); URINE COLOR DK YELLOW; URINE GLUCOSE (UA) NEGATIVE (NEGATIVE); URINE KETONE TRACE (NEGATIVE); URINE LEUK ESTERASE 3+ (NEGATIVE); URINE NITRITE NEGATIVE (NEGATIVE); URINE PROTEIN 1+ (NEGATIVE); URINE WBC 1091 /uL (0-25.8)
[2024-12-04 16:29] LABS: BASO % 0.3 % (0-2.0); EOS % 0.5 % (0-4.5); HEMOGLOBIN 10.3 GM/dL (11.7-16.9); LYMPH % 4.3 % (8-40); MCH 26.8 pg (25.7-33.7); MCHC 32.4 g/dl (32.0-35.9); MEAN CELL VOLUME 82.9 fl (80-96); MEAN PLT VOLUME 8.7 fl (7.5-11.1); MONO % 9.7 % (3.8-10.2); NEUT % 85.2 % (42.8-82.8); PLATELET COUNT 365 10^3/uL (134-434); RBC 3.85 M/mm3 (4.00-5.60)
[2024-12-04 16:32] LABS: VENOUS BASE EXCESS 3.3 mmol/L (-2-2); VENOUS O2 SATURATION 90.9 % (70-80); VENOUS PCO2 50.2 mmHg (38-52); VENOUS PH 7.385 (7.310-7.410)
[2024-12-04 16:48] LABS: POTASSIUM 4.8 mmol/L (3.5-5.1)
[2024-12-04 16:50] LABS: ALBUMIN 2.4 g/dl (3.4-5.0); BLOOD UREA NITROGEN 13.7 mg/dL (7-18); CALCIUM 9.2 mg/dL (8.5-10.1)
[2024-12-04 16:53] LABS: CREATININE 0.9 mg/dL (0.55-1.3)
[2024-12-04 16:55] LABS: BILIRUBIN,TOTAL 0.7 mg/dL (0.2-1); TOT PROT 6.9 g/dl (6.4-8.2)
[2024-12-04] MEDS: VANCOMYCIN/WATER 1250 MG 1,250 MG/250 ML BAG IVPB ONE (17:00)
[2024-12-04 17:15] LABS: ANISOCYTOSIS 2+; MACROCYTOSIS 0; OVALOCYTE 1+
[2024-12-04] MEDS: PIPERACILLIN/TAZOB 3.375 GM 3.375 GM in DEXTROSE 5%-WATER - 50 ML IVPB ONE (17:27)
[2024-12-04] MEDS: SODIUM CHLORIDE 0.9% 500 ML INFUS.BAG IV ONE (17:34)
[2024-12-04] MEDS: ACETAMINOPHEN 1000 MG/100 ML BAG IVPB ONE (17:34)
[2024-12-04] MEDS ORDERED: ACETAMINOPHEN INJECTION 100 ML ONE (17:34)
[2024-12-04 17:38] LABS: INR 1.15 (0.83-1.09); PROTHROMBIN TIME (PATIENT) 12.9 SEC (9.7-13.0)
[2024-12-04 17:41] LABS: ACTIVATED PTT 35.7 SECONDS (25.2-36.5)
[2024-12-04] MEDS ORDERED: CEFEPIME HCL/D5W 2 GM/50 ML BAG IVPB ONE (17:54)
[2024-12-04] MEDS: CEFEPIME HCL 2 GM VIAL (RESTRICTED TO ID) IVPB ONE (18:01)
[2024-12-04] MEDS ORDERED: VANCOMYCIN/WATER 1250 MG 1,250 MG/250 ML BAG IVPB ONE (18:24)
[2024-12-04] MEDS ORDERED: ALBUTEROL SO4 2.5/IPRATROPIUM 0.5 INH SOL 3 ML VIAL.NEB. NEB PRN (20:18)
[2024-12-04] MEDS: methylPREDNISolone NA SUCC 40 MG/1 ML VIAL IVPUSH ONE (20:46)
[2024-12-04] MEDS ORDERED: HYDROCORTISONE SOD SUCCINATE 100 MG/2 ML VIAL ONE (20:46)
[2024-12-04] MEDS: clonazePAM 0.5 MG TABLET PO SCH (22:56)
[2024-12-04] MEDS: SODIUM CHLORIDE 1,000 ML IV STA (23:00)
[2024-12-05] MEDS ORDERED: VANCOMYCIN 1 GM PREMIX (F) 1 GM/200 ML BAG ONE (05:44)
[2024-12-05] MEDS: VANCOMYCIN 1 GM PREMIX (F) 1 GM/200 ML BAG IVPB SCH (05:59)
[2024-12-05] MEDS: MELATONIN 5 MG TABLETS PO ONE (06:00)
[2024-12-05] MEDS ORDERED: CEFEPIME HCL/D5W 2 GM/50 ML BAG IVPB SCH (06:00)
[2024-12-05] MEDS: hydrOXYzine PAMOATE 25 MG CAPSULE (FP) PO ONE (06:00)
[2024-12-05] MEDS ORDERED: CEFEPIME HCL 2 GM VIAL (RESTRICTED TO ID) IVPB SCH (06:00)
[2024-12-05] MEDS ORDERED: clonazePAM 0.5 MG TABLET ONE ×2 (09:35→14:11)
[2024-12-05] MEDS ORDERED: methaDONE HCL 40 MG DISPERSABLE TABLET ONE (09:36)
[2024-12-05] MEDS: FOLIC ACID 1 MG TABLET (FP) PO SCH (09:38)
[2024-12-05] MEDS: THIAMINE 100 MG TABLET PO SCH (09:38)
[2024-12-05] MEDS: methylPREDNISolone NA SUCC 40 MG/1 ML VIAL IVPUSH SCH (09:38)
[2024-12-05] MEDS: NICOTINE 21 MG/24 HOURS TOPICAL PATCH TD SCH (09:39)
[2024-12-05] MEDS: methaDONE HCL 40 MG DISPERSABLE TABLET PO ONE (09:39)
[2024-12-05] MEDS: ENOXAPARIN NA (PORCINE) 40 MG/0.4 ML DISP.SYRIN SQ SCH (09:56)
[2024-12-05] MEDS ORDERED: methylPREDNISolone NA SUCC 40 MG/1 ML VIAL ONE (14:11)
[2024-12-05] MEDS: ALBUTEROL SO4 2.5/IPRATROPIUM 0.5 INH SOL 3 ML VIAL.NEB. NEB SCH (15:43)
[2024-12-05] MEDS: CEFEPIME HCL/D5W 2 GM/50 ML BAG IVPB SCH (15:50)
[2024-12-05] MEDS: VANCOMYCIN 1,000 MG in DEXTROSE 5%-WATER - 250 ML IVPB SCH (15:50)
[2024-12-05] MEDS: SODIUM CHLORIDE 1,000 ML IV SCH (19:05)
[2024-12-05] MEDS: PIPERACILLIN/TAZOB 3.375 GM 3.375 GM in DEXTROSE 5%-WATER - 50 ML IVPB SCH (19:25)
[2024-12-06] MEDS: VANCOMYCIN 1 GM PREMIX (F) 1 GM/200 ML BAG IVPB SCH (06:23)
[2024-12-06] MEDS: methaDONE HCL 40 MG DISPERSABLE TABLET PO ONE (09:42)
[2024-12-06 09:46] LABS: BASO % 0.3 % (0-2.0); HEMATOCRIT 30.3 % (35.4-49); HEMOGLOBIN 9.7 GM/dL (11.7-16.9); LYMPH % 2.5 % (8-40); MCH 26.7 pg (25.7-33.7); MCHC 31.9 g/dl (32.0-35.9); MEAN CELL VOLUME 83.7 fl (80-96); MEAN PLT VOLUME 9.1 fl (7.5-11.1); MONO % 3.6 % (3.8-10.2); NEUT % 93.6 % (42.8-82.8); PLATELET COUNT 430 10^3/uL (134-434); RBC 3.62 M/mm3 (4.00-5.60); RDW 14.1 % (11.9-15.9); WHITE BLOOD COUNT 23.2 K/mm3 (4.0-10.0)
[2024-12-06 10:02] LABS: POTASSIUM 4.6 mmol/L (3.5-5.1)
[2024-12-06 10:05] LABS: BLOOD UREA NITROGEN 16.4 mg/dL (7-18)
[2024-12-06 10:08] LABS: CREATININE 0.8 mg/dL (0.55-1.3)
[2024-12-06 10:09] LABS: BILIRUBIN,TOTAL 0.4 mg/dL (0.2-1); TOT PROT 6.1 g/dl (6.4-8.2)
[2024-12-06 10:16] LABS: ANISOCYTOSIS 0; MACROCYTOSIS 0
[2024-12-06] MEDS: PERMETHRIN (NIX CREAM SCALP RINSE) 59 ML 1% BOTTLE TP ONE (17:12)
[2024-12-07] MEDS: methaDONE HCL 40 MG DISPERSABLE TABLET PO SCH (06:34)
[2024-12-07 10:04] LABS: HEMATOCRIT 31.1 % (35.4-49); HEMOGLOBIN 9.8 GM/dL (11.7-16.9); MCH 26.6 pg (25.7-33.7); MCHC 31.6 g/dl (32.0-35.9); MEAN CELL VOLUME 84.1 fl (80-96); MEAN PLT VOLUME 8.7 fl (7.5-11.1); PLATELET COUNT 474 10^3/uL (134-434); RDW 14.1 % (11.9-15.9); WHITE BLOOD COUNT 17.2 K/mm3 (4.0-10.0)
[2024-12-07 10:32] LABS: POTASSIUM 4.3 mmol/L (3.5-5.1)
[2024-12-07] MEDS: FOLIC ACID 1 MG TABLET (FP) PO SCH (10:33)
[2024-12-07 10:49] LABS: CALCIUM 9.2 mg/dL (8.5-10.1)
[2024-12-07 10:50] LABS: BLOOD UREA NITROGEN 21.7 mg/dL (7-18); MAGNESIUM 2.1 mg/dL (1.8-2.4)
[2024-12-07 10:53] LABS: CREATININE 0.9 mg/dL (0.55-1.3)
[2024-12-07 10:55] LABS: BILIRUBIN,TOTAL 0.3 mg/dL (0.2-1); TOT PROT 6.2 g/dl (6.4-8.2)
[2024-12-07 11:15] LABS: ANISOCYTOSIS 0; MACROCYTOSIS 0
[2024-12-07] MEDS: DOCUSATE SODIUM 100 MG CAPSULE (FP) PO SCH (14:34)
[2024-12-07] MEDS: SENNOSIDES 8.6MG TABLET (FP) PO SCH (21:25)
[2024-12-08] MEDS: PIPERACILLIN/TAZOB 3.375 GM 50 ML IVPB SCH (02:33)
[2024-12-08 09:42] LABS: HEMATOCRIT 32.3 % (35.4-49); MCH 25.9 pg (25.7-33.7); MCHC 30.8 g/dl (32.0-35.9); MEAN CELL VOLUME 84.1 fl (80-96); MEAN PLT VOLUME 8.5 fl (7.5-11.1); PLATELET COUNT 516 10^3/uL (134-434); RBC 3.84 M/mm3 (4.00-5.60); RDW 14.2 % (11.9-15.9); WHITE BLOOD COUNT 16.9 K/mm3 (4.0-10.0)
[2024-12-08 10:11] LABS: POTASSIUM 4.5 mmol/L (3.5-5.1)
[2024-12-08 10:13] LABS: BLOOD UREA NITROGEN 25.5 mg/dL (7-18); CALCIUM 8.9 mg/dL (8.5-10.1); MAGNESIUM 2.1 mg/dL (1.8-2.4)
[2024-12-08 10:17] LABS: CREATININE 0.9 mg/dL (0.55-1.3)
[2024-12-08 10:18] LABS: BILIRUBIN,TOTAL 0.2 mg/dL (0.2-1)
[2024-12-08 10:30] LABS: ANISOCYTOSIS 0; MACROCYTOSIS 0
[2024-12-08] MEDS: methylPREDNISolone NA SUCC 40 MG/1 ML VIAL IVPUSH SCH (17:23)
[2024-12-08] MEDS: VANCOMYCIN 1 GM PREMIX (F) 1 GM/200 ML BAG IVPB SCH (23:48)
[2024-12-09 09:46] LABS: HEMATOCRIT 30.2 % (35.4-49); HEMOGLOBIN 9.9 GM/dL (11.7-16.9); MCH 27.3 pg (25.7-33.7); MCHC 32.9 g/dl (32.0-35.9); MEAN CELL VOLUME 82.8 fl (80-96); MEAN PLT VOLUME 8.3 fl (7.5-11.1); PLATELET COUNT 495 10^3/uL (134-434); RBC 3.64 M/mm3 (4.00-5.60); RDW 14.2 % (11.9-15.9); WHITE BLOOD COUNT 18.9 K/mm3 (4.0-10.0)
[2024-12-09 10:03] LABS: POTASSIUM 4.4 mmol/L (3.5-5.1)
[2024-12-09 10:38] LABS: ANISOCYTOSIS 0; MACROCYTOSIS 0
[2024-12-09 11:03] LABS: ALBUMIN 2.1 g/dl (3.4-5.0)
[2024-12-09 11:05] LABS: BLOOD UREA NITROGEN 24.3 mg/dL (7-18); CALCIUM 9.4 mg/dL (8.5-10.1); MAGNESIUM 2.1 mg/dL (1.8-2.4)
[2024-12-09 11:08] LABS: BILIRUBIN,TOTAL 0.4 mg/dL (0.2-1)
[2024-12-09 11:09] LABS: CREATININE 0.9 mg/dL (0.55-1.3); TOT PROT 5.9 g/dl (6.4-8.2)
[2024-12-10] MEDS: KETOROLAC TROMETHAMINE 15 MG/ML VIAL IVPUSH ONE (03:30)
[2024-12-10] MEDS: POLYETHYLENE GLYCOL (HEALTHYLAX) 3350 17 GM PACKET PO SCH (17:37)
[2024-12-10] MEDS: SENNOSIDES 8.6MG TABLET (FP) PO SCH (22:25)
[2024-12-11] MEDS ORDERED: INSULIN ASPART SLIDING SCALE (NOVOLOG) 1 VIAL SQ ONE (08:17)
[2024-12-11 10:57] LABS: HEMATOCRIT 31.6 % (35.4-49); HEMOGLOBIN 10.2 GM/dL (11.7-16.9); MCH 27.2 pg (25.7-33.7); MCHC 32.3 g/dl (32.0-35.9); MEAN CELL VOLUME 84.2 fl (80-96); MEAN PLT VOLUME 8.1 fl (7.5-11.1); PLATELET COUNT 588 10^3/uL (134-434); RBC 3.76 M/mm3 (4.00-5.60); RDW 14.4 % (11.9-15.9); WHITE BLOOD COUNT 22.1 K/mm3 (4.0-10.0)
[2024-12-11 11:18] LABS: POTASSIUM 4.9 mmol/L (3.5-5.1)
[2024-12-11 11:22] LABS: CALCIUM 8.8 mg/dL (8.5-10.1)
[2024-12-11 11:24] LABS: CREATININE 0.7 mg/dL (0.55-1.3)
[2024-12-11] MEDS: POLYETHYLENE GLYCOL (HEALTHYLAX) 3350 17 GM PACKET PO SCH (11:24)
[2024-12-11 11:26] LABS: BILIRUBIN,TOTAL 0.2 mg/dL (0.2-1); TOT PROT 5.6 g/dl (6.4-8.2)
[2024-12-11 12:24] LABS: ANISOCYTOSIS 0; HELMET CELLS 0; HOWELL-JOLLY BODIES 0; MACROCYTOSIS 0; OVALOCYTE 0; ROULEAU 0; SICKELED CELLS 0; TARGET CELLS 0; TEAR DROP CELLS 0; TOXIC GRANULATION 0
[2024-12-11] MEDS: ALBUTEROL SO4 2.5/IPRATROPIUM 0.5 INH SOL 3 ML VIAL.NEB. NEB SCH (15:33)
[2024-12-11] MEDS: LURASIDONE HCL 40 MG TABLET PO SCH (19:12)
[2024-12-11] MEDS: PERPHENAZINE 4 MG TABLET PO SCH (19:12)
[2024-12-11] MEDS: AMOX TR/POT CLAV 500MG/125MG TABLETS (FP) PO SCH (19:13)
[2024-12-11] MEDS: DIVALPROEX NA *ER* EXTEND REL 500 MG TABLET.SA (FP) PO SCH (23:00)
[2024-12-12] MEDS: IBUPROFEN 600 MG TABLET (FP) PO ONE (00:28)
[2024-12-12] MEDS: KETOROLAC TROMETHAMINE 15 MG/ML VIAL IVPUSH ONE (01:31)
[2024-12-12] MEDS: ESCITALOPRAM OXALATE 20 MG TABLET PO SCH (11:24)
[2024-12-14] MEDS: methaDONE HCL 40 MG DISPERSABLE TABLET PO SCH (05:33)
[2024-12-15] MEDS: methaDONE HCL 40 MG DISPERSABLE TABLET PO ONE (07:02)
[2024-12-15] MEDS ORDERED: methaDONE HCL 40 MG DISPERSABLE TABLET PO SCH (12:45)
[2024-12-16] MEDS: methaDONE HCL 40 MG DISPERSABLE TABLET PO SCH (05:39)
[2024-12-16] MEDS: LURASIDONE HCL 20 MG TABLET PO SCH (11:00)
[2024-12-16 22:58] VITALS: RESP 18
[2024-12-17 14:40] VITALS: BP 90/66; PULSE 87; TEMP 97.7
== END 2024-12-17 17:22 | disposition other institution (70) | DRG 720 ==
LOC: JER 14:50 → JERBED 17:22 → J8W 12-05 14:57
PROVIDERS: ADMIT Internal Medicine; ATTEND Nurse Practitioner Acute Care
DX: A41.9 Sepsis, unspecified organism (principal); E43 Unspecified severe protein-calorie malnutrition; J18.9 Pneumonia, unspecified organism; B97.4 Respiratory syncytial virus as the cause of diseases classified elsewhere; F33.9 Major depressive disorder, recurrent, unspecified; J45.901 Unspecified asthma with (acute) exacerbation; E05.00 Thyrotoxicosis with diffuse goiter without thyrotoxic crisis or storm; F19.10 Other psychoactive substance abuse, uncomplicated; I10 Essential (primary) hypertension; Z68.20 Body mass index [BMI] 20.0-20.9, adult; F17.210 Nicotine dependence, cigarettes, uncomplicated
CPT/HCPCS: 0241U-QW; 36415; 71045-TC-FY; 74176-TC; 76705-TC; 80053; 81003; 82550; 82803; 82977; 83605; 83690; 83735; 84484; 85025; 85610; 85730; 86480; 87040; 87086; 87899; 93005; 93010; 93306-TC; 94640; 97116-GP; 97161-GP; 99285-25; G0480; J0131